=== PATIENT | female | born 1940 | race Caucasian/White ===

== ENCOUNTER 2023-05-30 16:22 | Inpatient (IN) | payer MEDICARE, MEDICAID ==
[~2023-05-30] VITALS: Ht 158.8 cm; Wt 67.0 kg
[~2023-05-30 16:22] MED LIST: AMI200T PO; APIX5TAB3 PO; ASPI-1265 PO; ATOR20TA66 PO; CARV-49 PO; CLOP75TA34 PO; HYDR-4383 PO
[2023-05-30] MEDS ORDERED: heparin 10,000 units/1 ML INJ IV PRN (16:45)
[2023-05-30] MEDS: heparin 25,000 UNIT/250ml bag 250 ML IV PRN ×2 (16:57→17:15)
[2023-05-30 17:03] LABS: BASOPHILS # (AUTO) 0.1 X10'3 (0-0.2); BASOPHILS % (AUTO) 0.8 % (0-1); EOSINOPHILS % (AUTO) 0.3 % (0-6); HEMATOCRIT 40.7 % (35.0-45.0); HEMOGLOBIN 13.4 g/dl (12.0-16.0); LYMPHOCYTES # (AUTO) 1.9 X10'3 (1.1-4.8); LYMPHOCYTES % (AUTO) 18.5 % (21-51); MEAN CORPUSCULAR HEMOGLOBIN 29.2 PG (27.0-31.0); MEAN CORPUSCULAR HGB CONC 32.9 g/dL (33.0-36.5); MEAN CORPUSCULAR VOLUME 88.7 FL (78-98); MEAN PLATELET VOLUME 9.6 FL (7.4-10.4); MONOCYTES # (AUTO) 1.3 X10'3 (0-0.9); MONOCYTES % (AUTO) 13.1 % (2-12); NEUTROPHILS # (AUTO) 6.9 X10'3 (1.8-7.7); NEUTROPHILS % (AUTO) 67.3 % (42-75); PLATELET COUNT 243 X10'3 (140-440); RED BLOOD COUNT 4.59 X10'6 (4.20-5.60); RED CELL DISTRIBUTION WIDTH 15.1 % (11.5-14.5); WHITE BLOOD COUNT 10.2 X10'3 (4.5-11.0)
[2023-05-30 17:11] LABS: ALANINE AMINOTRANSFERASE 21 U/L (12-78); ALBUMIN 3.6 G/DL (3.4-5.0); ALBUMIN/GLOBULIN RATIO 1.2 (1.1-1.5); ALKALINE PHOSPHATASE 52 IU/L (46-116); ANION GAP 9 (8-16); ASPARTATE AMINO TRANSFERASE 46 U/L (10-37); BILIRUBIN,TOTAL 0.9 MG/DL (0.1-1.0); BLOOD UREA NITROGEN 20 MG/DL (7-18); BUN/CREATININE RATIO 14.2 (10.0-20.0); CALCIUM 9.4 MG/DL (8.5-10.1); CHLORIDE 106 MMOL/L (99-107); CREATININE 1.41 MG/DL (0.40-0.90); GLUCOSE 137 MG/DL (70-104); SODIUM 140 MMOL/L (135-145); TOTAL CARBON DIOXIDE 25.2 MMOL/L (24-32); TOTAL PROTEIN 6.7 G/DL (6.4-8.2); eCRCL 25 ML/MIN; eGFR 36 ML/MIN
[2023-05-30 17:19] LABS: PRO BRAIN NATRIURETIC PEPTIDE 10392 PG/ML (0-450)
[2023-05-30] MEDS ORDERED: nitroGLYCERIN 1gm ointment UD TP ONE (17:30)
[2023-05-30] MEDS ORDERED: furosemide 10 MG/1 ML 10ml inj IV ONE (17:30)
[2023-05-30 17:38] LABS: POTASSIUM 3.4 MMOL/L (3.5-5.1)
[2023-05-30] MEDS ORDERED: potassium Cl 20 mEq SR tablet PO STA (17:42)
[2023-05-30 18:23] LABS: CREATINE KINASE 360 U/L (26-192)
[2023-05-31] MEDS ORDERED: magnesium Cl slow-release 64mg tablet PO PRN (00:35)
[2023-05-31] MEDS ORDERED: potassium Cl 40MEQ/1/2NS 520ml 520 ML IV PRN (00:35)
[2023-05-31] MEDS ORDERED: magnesium 4gm in 100ml NS 100 ML IV PRN (00:35)
[2023-05-31] MEDS ORDERED: PERFLUTREN PROTEIN-A MICROSPHR (Optison) 0.22 MG/ML 3ML VIAL IV ONE (00:35)
[2023-05-31] MEDS ORDERED: mag hydrox/Alum hydrox/simeth 30ml oral suspension PO PRN (00:35)
[2023-05-31] MEDS ORDERED: ondansetron/PF 4mg/2ml inj IV PRN (00:35)
[2023-05-31] MEDS ORDERED: magnesium 2GM in 50ml NS 50 ML IV PRN (00:35)
[2023-05-31] MEDS ORDERED: magnesium hydroxide 30ml (MOM) UD suspension PO PRN (00:35)
[2023-05-31] MEDS ORDERED: potassium Cl 20 mEq SR tablet PO PRN (00:35)
[2023-05-31] MEDS ORDERED: metoprolol tartrate 25mg tablet PO ONE (00:45)
[2023-05-31] MEDS: normal saline 1000ml 1,000 ML IV SCH (01:47)
[2023-05-31] MEDS: heparin 25,000 UNIT/250ml bag 250 ML IV PRN ×2 (02:57→22:58)
[2023-05-31] MEDS: docusate sod 100mg capsule PO SCH ×2 (08:12→19:17)
[2023-05-31] MEDS: potassium Cl 20 mEq SR tablet PO PRN ×2 (08:12→19:17)
[2023-05-31] MEDS: K and/or MAG REPLACEMENT MC SCH ×2 (08:18→19:30)
[2023-05-31] MEDS: atorvastatin 20mg tablet PO SCH (08:19)
[2023-05-31 09:00] VITALS: BP 170/59; PULSE 70; RESP 18; TEMP 98.8; O2SAT 97
[2023-05-31 09:04] LABS: BASOPHILS # (AUTO) 0.1 X10'3 (0-0.2); BASOPHILS % (AUTO) 0.9 % (0-1); EOSINOPHILS # (AUTO) 0.1 X10'3 (0-0.9); HEMATOCRIT 41.5 % (35.0-45.0); HEMOGLOBIN 13.8 g/dl (12.0-16.0); LYMPHOCYTES # (AUTO) 1.9 X10'3 (1.1-4.8); LYMPHOCYTES % (AUTO) 21.3 % (21-51); MEAN CORPUSCULAR HEMOGLOBIN 29.3 PG (27.0-31.0); MEAN CORPUSCULAR HGB CONC 33.2 g/dL (33.0-36.5); MEAN CORPUSCULAR VOLUME 88.3 FL (78-98); MEAN PLATELET VOLUME 9.5 FL (7.4-10.4); MONOCYTES # (AUTO) 1.2 X10'3 (0-0.9); MONOCYTES % (AUTO) 13.2 % (2-12); NEUTROPHILS # (AUTO) 5.7 X10'3 (1.8-7.7); NEUTROPHILS % (AUTO) 63.6 % (42-75); PLATELET COUNT 243 X10'3 (140-440); RED CELL DISTRIBUTION WIDTH 14.8 % (11.5-14.5); WHITE BLOOD COUNT 8.9 X10'3 (4.5-11.0)
[2023-05-31 09:09] LABS: ALANINE AMINOTRANSFERASE 23 U/L (12-78); ALBUMIN 3.5 G/DL (3.4-5.0); ALBUMIN/GLOBULIN RATIO 1.1 (1.1-1.5); ALKALINE PHOSPHATASE 56 IU/L (46-116); ANION GAP 8 (8-16); ASPARTATE AMINO TRANSFERASE 46 U/L (10-37); BILIRUBIN,TOTAL 1.2 MG/DL (0.1-1.0); BLOOD UREA NITROGEN 20 MG/DL (7-18); BUN/CREATININE RATIO 13.1 (10.0-20.0); CALCIUM 9.2 MG/DL (8.5-10.1); CHLORIDE 104 MMOL/L (99-107); CHOL/HDL RATIO 2.6 (0.00-4.99); CHOLESTEROL 147 MG/DL (0-200); CREATININE 1.53 MG/DL (0.40-0.90); GLUCOSE 112 MG/DL (70-104); HDL CHOLESTEROL 56 MG/DL (35-60); LDL CHOLESTEROL 70 MG/DL (50-100); MAGNESIUM 1.8 MG/DL (1.5-2.4); POTASSIUM 3.1 MMOL/L (3.5-5.1); SODIUM 142 MMOL/L (135-145); TOTAL CARBON DIOXIDE 29.9 MMOL/L (24-32); TOTAL PROTEIN 6.8 G/DL (6.4-8.2); TRIGLYCERIDES 81 MG/DL (20-135); eCRCL 23 ML/MIN; eGFR 32 ML/MIN
[2023-05-31 09:30] VITALS: RESP 18; O2SAT 97
[2023-05-31 17:15] VITALS: BP 180/100
[2023-05-31 18:00] VITALS: BP 210/100; PULSE 79; RESP 15; TEMP 97.7; O2SAT 95
[2023-05-31 18:05] VITALS: BP 160/80
[2023-05-31] MEDS: acetaminophen 325mg tablet PO PRN (19:06)
[2023-05-31] MEDS: hydrALAZINE 20mg/ml inj. IV PRN (19:06)
[2023-05-31 22:00] VITALS: BP 163/64; PULSE 81; RESP 20; TEMP 98.2; O2SAT 97
[2023-06-01] VITALS (7 sets, daily range): BP systolic 142–172; BP diastolic 54–72; PULSE 65–78; RESP 13–21; TEMP 97.2–98; O2SAT 94–97
[2023-06-01 04:27] LABS: ALANINE AMINOTRANSFERASE 18 U/L (12-78); ALKALINE PHOSPHATASE 45 IU/L (46-116); ANION GAP 7 (8-16); ASPARTATE AMINO TRANSFERASE 29 U/L (10-37); BILIRUBIN,TOTAL 1.1 MG/DL (0.1-1.0); BLOOD UREA NITROGEN 25 MG/DL (7-18); BUN/CREATININE RATIO 17.6 (10.0-20.0); CALCIUM 8.8 MG/DL (8.5-10.1); CHLORIDE 105 MMOL/L (99-107); CREATININE 1.42 MG/DL (0.40-0.90); GLUCOSE 102 MG/DL (70-104); MAGNESIUM 1.9 MG/DL (1.5-2.4); POTASSIUM 3.6 MMOL/L (3.5-5.1); SODIUM 139 MMOL/L (135-145); TOTAL CARBON DIOXIDE 26.8 MMOL/L (24-32); TOTAL PROTEIN 5.9 G/DL (6.4-8.2); eCRCL 25 ML/MIN; eGFR 35 ML/MIN
[2023-06-01 04:46] LABS: BASOPHILS # (AUTO) 0.1 X10'3 (0-0.2); BASOPHILS % (AUTO) 1.1 % (0-1); EOSINOPHILS # (AUTO) 0.3 X10'3 (0-0.9); EOSINOPHILS % (AUTO) 3.7 % (0-6); HEMOGLOBIN 12.4 g/dl (12.0-16.0); LYMPHOCYTES # (AUTO) 2.3 X10'3 (1.1-4.8); MEAN CORPUSCULAR HEMOGLOBIN 29.5 PG (27.0-31.0); MEAN CORPUSCULAR HGB CONC 33.6 g/dL (33.0-36.5); MEAN PLATELET VOLUME 9.4 FL (7.4-10.4); MONOCYTES # (AUTO) 1.2 X10'3 (0-0.9); MONOCYTES % (AUTO) 14.3 % (2-12); NEUTROPHILS # (AUTO) 4.2 X10'3 (1.8-7.7); NEUTROPHILS % (AUTO) 51.9 % (42-75); PLATELET COUNT 240 X10'3 (140-440); RED CELL DISTRIBUTION WIDTH 15.1 % (11.5-14.5); WHITE BLOOD COUNT 8.1 X10'3 (4.5-11.0)
[2023-06-01] MEDS: acetaminophen 325mg tablet PO PRN ×2 (05:31→15:14)
[2023-06-01] MEDS: K and/or MAG REPLACEMENT MC SCH ×2 (08:00→19:22)
[2023-06-01] MEDS: docusate sod 100mg capsule PO SCH ×2 (08:17→19:26)
[2023-06-01] MEDS: atorvastatin 20mg tablet PO SCH (08:18)
[2023-06-01] MEDS: hydrALAZINE 20mg/ml inj. IV PRN (08:18)
[2023-06-01] MEDS ORDERED: metoprolol tartrate 50mg tablet PO ONE (08:35)
[2023-06-01] MEDS ORDERED: amLODIPine 5mg tablet PO SCH (16:00)
[2023-06-01] MEDS: metoprolol tartrate 25mg tablet PO SCH (19:27)
[2023-06-01] MEDS: normal saline 1000ml 1,000 ML IV SCH (19:47)
[2023-06-02] VITALS (7 sets, daily range): BP systolic 106–167; BP diastolic 62–77; PULSE 72–81; RESP 16–18; TEMP 97.2–98.2; O2SAT 94–97
[2023-06-02] MEDS: hydrALAZINE 20mg/ml inj. IV PRN (02:31)
[2023-06-02 02:59] LABS: BASOPHILS # (AUTO) 0.1 X10'3 (0-0.2); BASOPHILS % (AUTO) 1.4 % (0-1); EOSINOPHILS # (AUTO) 0.5 X10'3 (0-0.9); EOSINOPHILS % (AUTO) 6.6 % (0-6); HEMATOCRIT 36.7 % (35.0-45.0); LYMPHOCYTES # (AUTO) 2.6 X10'3 (1.1-4.8); MEAN CORPUSCULAR HEMOGLOBIN 28.8 PG (27.0-31.0); MEAN CORPUSCULAR HGB CONC 32.7 g/dL (33.0-36.5); MEAN CORPUSCULAR VOLUME 88.2 FL (78-98); MEAN PLATELET VOLUME 9.4 FL (7.4-10.4); MONOCYTES # (AUTO) 1.1 X10'3 (0-0.9); MONOCYTES % (AUTO) 14.4 % (2-12); NEUTROPHILS # (AUTO) 3.4 X10'3 (1.8-7.7); NEUTROPHILS % (AUTO) 43.6 % (42-75); PLATELET COUNT 245 X10'3 (140-440); RED BLOOD COUNT 4.17 X10'6 (4.20-5.60); WHITE BLOOD COUNT 7.7 X10'3 (4.5-11.0)
[2023-06-02 03:06] LABS: ALANINE AMINOTRANSFERASE 18 U/L (12-78); ALBUMIN 2.8 G/DL (3.4-5.0); ALKALINE PHOSPHATASE 45 IU/L (46-116); ANION GAP 8 (8-16); ASPARTATE AMINO TRANSFERASE 25 U/L (10-37); BILIRUBIN,TOTAL 0.8 MG/DL (0.1-1.0); BLOOD UREA NITROGEN 32 MG/DL (7-18); BUN/CREATININE RATIO 22.7 (10.0-20.0); CALCIUM 8.8 MG/DL (8.5-10.1); CHLORIDE 105 MMOL/L (99-107); CREATININE 1.41 MG/DL (0.40-0.90); GLUCOSE 104 MG/DL (70-104); MAGNESIUM 2.2 MG/DL (1.5-2.4); POTASSIUM 3.6 MMOL/L (3.5-5.1); SODIUM 139 MMOL/L (135-145); TOTAL CARBON DIOXIDE 26.1 MMOL/L (24-32); TOTAL PROTEIN 5.5 G/DL (6.4-8.2); eCRCL 25 ML/MIN; eGFR 36 ML/MIN
[2023-06-02] MEDS: acetaminophen 325mg tablet PO PRN (03:26)
[2023-06-02] MEDS: docusate sod 100mg capsule PO SCH ×2 (07:42→19:34)
[2023-06-02] MEDS: atorvastatin 20mg tablet PO SCH (07:44)
[2023-06-02] MEDS: metoprolol tartrate 25mg tablet PO SCH ×2 (07:44→19:33)
[2023-06-02] MEDS: amLODIPine 5mg tablet PO SCH (07:45)
[2023-06-02] MEDS: K and/or MAG REPLACEMENT MC SCH ×2 (08:00→19:47)
[2023-06-02] MEDS ORDERED: clopidogrel 75mg tablet PO ONE (08:50)
[2023-06-02] MEDS ORDERED: HYDR-4069 PO (11:47)
[2023-06-02] MEDS ORDERED: aspirin/acetaminophen/caffeine tablet PO PRN (12:25)
[2023-06-02] MEDS: hydrALAZINE 25 MG tablet PO SCH (19:34)
[2023-06-03] VITALS (8 sets, daily range): BP systolic 138–184; BP diastolic 56–75; PULSE 61–88; RESP 10–20; TEMP 97.2–98.6; O2SAT 94–97
[2023-06-03] MEDS: acetaminophen 325mg tablet PO PRN ×2 (01:26→19:22)
[2023-06-03] MEDS: metoprolol tartrate 25mg tablet PO SCH ×2 (07:52→19:16)
[2023-06-03] MEDS: amLODIPine 5mg tablet PO SCH (07:52)
[2023-06-03] MEDS: hydrALAZINE 25 MG tablet PO SCH ×2 (07:53→19:15)
[2023-06-03] MEDS: clopidogrel 75mg tablet PO SCH (07:53)
[2023-06-03] MEDS: docusate sod 100mg capsule PO SCH ×2 (07:53→19:14)
[2023-06-03] MEDS: atorvastatin 20mg tablet PO SCH (07:53)
[2023-06-03] MEDS ORDERED: atorvastatin 20mg tablet PO SCH (08:00)
[2023-06-03] MEDS ORDERED: clopidogrel 75mg tablet PO SCH (08:00)
[2023-06-03] MEDS: K and/or MAG REPLACEMENT MC SCH ×2 (08:00→20:00)
[2023-06-03 08:05] LABS: BASOPHILS # (AUTO) 0.1 X10'3 (0-0.2); EOSINOPHILS # (AUTO) 0.4 X10'3 (0-0.9); HEMATOCRIT 38.8 % (35.0-45.0); HEMOGLOBIN 12.7 g/dl (12.0-16.0); LYMPHOCYTES # (AUTO) 2.4 X10'3 (1.1-4.8); LYMPHOCYTES % (AUTO) 33.1 % (21-51); MEAN CORPUSCULAR HGB CONC 32.7 g/dL (33.0-36.5); MEAN CORPUSCULAR VOLUME 88.6 FL (78-98); MEAN PLATELET VOLUME 9.4 FL (7.4-10.4); MONOCYTES % (AUTO) 13.9 % (2-12); NEUTROPHILS # (AUTO) 3.3 X10'3 (1.8-7.7); PLATELET COUNT 276 X10'3 (140-440); RED BLOOD COUNT 4.37 X10'6 (4.20-5.60); RED CELL DISTRIBUTION WIDTH 14.9 % (11.5-14.5); WHITE BLOOD COUNT 7.2 X10'3 (4.5-11.0)
[2023-06-03 08:45] LABS: ALANINE AMINOTRANSFERASE 22 U/L (12-78); ALKALINE PHOSPHATASE 52 IU/L (46-116); ANION GAP 9 (8-16); ASPARTATE AMINO TRANSFERASE 33 U/L (10-37); BILIRUBIN,TOTAL 0.9 MG/DL (0.1-1.0); BLOOD UREA NITROGEN 27 MG/DL (7-18); BUN/CREATININE RATIO 20.9 (10.0-20.0); CALCIUM 8.9 MG/DL (8.5-10.1); CHLORIDE 106 MMOL/L (99-107); CREATININE 1.29 MG/DL (0.40-0.90); GLUCOSE 88 MG/DL (70-104); MAGNESIUM 2.3 MG/DL (1.5-2.4); POTASSIUM 3.8 MMOL/L (3.5-5.1); SODIUM 141 MMOL/L (135-145); TOTAL CARBON DIOXIDE 25.9 MMOL/L (24-32); TOTAL PROTEIN 6.1 G/DL (6.4-8.2); eCRCL 27 ML/MIN; eGFR 40 ML/MIN
[2023-06-03] MEDS: hydrALAZINE 20mg/ml inj. IV PRN (16:54)
[2023-06-04 07:00] VITALS: BP 172/67; PULSE 77; RESP 17; TEMP 97.4; O2SAT 95
[2023-06-04] MEDS: clopidogrel 75mg tablet PO SCH (07:59)
[2023-06-04] MEDS: docusate sod 100mg capsule PO SCH (07:59)
[2023-06-04 08:00] VITALS: RESP 17; O2SAT 95
[2023-06-04] MEDS: metoprolol tartrate 25mg tablet PO SCH (08:00)
[2023-06-04] MEDS: K and/or MAG REPLACEMENT MC SCH (08:00)
[2023-06-04] MEDS: atorvastatin 20mg tablet PO SCH (08:00)
[2023-06-04] MEDS: amLODIPine 5mg tablet PO SCH (08:00)
[2023-06-04] MEDS: hydrALAZINE 25 MG tablet PO SCH (08:00)
[2023-06-04 08:11] LABS: BASOPHILS # (AUTO) 0.1 X10'3 (0-0.2); BASOPHILS % (AUTO) 0.9 % (0-1); EOSINOPHILS # (AUTO) 0.4 X10'3 (0-0.9); EOSINOPHILS % (AUTO) 6.3 % (0-6); HEMATOCRIT 37.9 % (35.0-45.0); HEMOGLOBIN 12.5 g/dl (12.0-16.0); LYMPHOCYTES # (AUTO) 1.9 X10'3 (1.1-4.8); LYMPHOCYTES % (AUTO) 26.6 % (21-51); MEAN CORPUSCULAR HEMOGLOBIN 29.1 PG (27.0-31.0); MEAN CORPUSCULAR HGB CONC 32.9 g/dL (33.0-36.5); MEAN CORPUSCULAR VOLUME 88.5 FL (78-98); MEAN PLATELET VOLUME 8.9 FL (7.4-10.4); MONOCYTES % (AUTO) 13.9 % (2-12); NEUTROPHILS # (AUTO) 3.7 X10'3 (1.8-7.7); NEUTROPHILS % (AUTO) 52.3 % (42-75); PLATELET COUNT 250 X10'3 (140-440); RED BLOOD COUNT 4.28 X10'6 (4.20-5.60); RED CELL DISTRIBUTION WIDTH 15.2 % (11.5-14.5); WHITE BLOOD COUNT 7.1 X10'3 (4.5-11.0)
[2023-06-04 08:52] LABS: ALANINE AMINOTRANSFERASE 20 U/L (12-78); ALBUMIN 2.9 G/DL (3.4-5.0); ALKALINE PHOSPHATASE 49 IU/L (46-116); ANION GAP 12 (8-16); ASPARTATE AMINO TRANSFERASE 31 U/L (10-37); BILIRUBIN,TOTAL 0.7 MG/DL (0.1-1.0); BLOOD UREA NITROGEN 29 MG/DL (7-18); BUN/CREATININE RATIO 21.5 (10.0-20.0); CALCIUM 8.9 MG/DL (8.5-10.1); CHLORIDE 105 MMOL/L (99-107); CREATININE 1.35 MG/DL (0.40-0.90); GLUCOSE 90 MG/DL (70-104); MAGNESIUM 2.2 MG/DL (1.5-2.4); POTASSIUM 3.8 MMOL/L (3.5-5.1); SODIUM 140 MMOL/L (135-145); TOTAL PROTEIN 5.8 G/DL (6.4-8.2); eCRCL 26 ML/MIN; eGFR 38 ML/MIN
[2023-06-04] MEDS ORDERED: LOP25T PO (10:45)
[2023-06-04] MEDS ORDERED: NOR5T PO (10:45)
[2023-06-04] MEDS ORDERED: ACET-1008 PO (10:45)
[2023-06-04 11:00] VITALS: BP 150/61; PULSE 65; RESP 12; TEMP 97.8; O2SAT 97
== END 2023-06-04 12:18 | DRG 280 ==
LOC: ER 16:23 → ED HOLD 05-31 00:35 → EDBEDREQ 05-31 05:47 → PCU 3S 05-31 08:30
PROVIDERS: ADMIT Internal Medicine; ATTEND Family Medicine
DX: I21.4 Non-ST elevation (NSTEMI) myocardial infarction (principal); N17.0 Acute kidney failure with tubular necrosis; I16.1 Hypertensive emergency; E78.00 Pure hypercholesterolemia, unspecified; I25.10 Atherosclerotic heart disease of native coronary artery without angina pectoris; I48.91 Unspecified atrial fibrillation; I50.9 Heart failure, unspecified; J43.9 Emphysema, unspecified; E87.6 Hypokalemia; J45.909 Unspecified asthma, uncomplicated; Z82.49 Family history of ischemic heart disease and other diseases of the circulatory system; I25.2 Old myocardial infarction; Z88.0 Allergy status to penicillin; Z88.5 Allergy status to narcotic agent; Z79.899 Other long term (current) drug therapy; Z79.82 Long term (current) use of aspirin
CPT/HCPCS: 36415; 71045; 72131; 80053; 80061; 82550; 83735; 83880; 84484; 85025; 85730; 87081; 93306; 97110; 97161; 97530; 99285; G0378; J0360; J1644; J1940; J7030; J7040

== ENCOUNTER 2024-10-05 10:53 | Day surgery (SDC) | payer MEDICARE, MEDICAID ==
[~2024-10-05] VITALS: Ht 157.5 cm; Wt 60.6 kg
[~2024-10-05 10:53] MED LIST changes: +ACET-1008 PO; -AMI200T PO; -ASPI-1265 PO; -CARV-49 PO; -HYDR-4383 PO; +HYDR25TA90 PO; +LOP25T PO; +NOR5T PO
[2024-10-05 11:54] LABS: HEMOGLOBIN 10.3 g/dl (12.0-16.0); MEAN CORPUSCULAR HEMOGLOBIN 29.4 PG (27.0-31.0); MEAN CORPUSCULAR HGB CONC 32.2 g/dL (33.0-36.5); MEAN CORPUSCULAR VOLUME 91.3 FL (78-98); MEAN PLATELET VOLUME 9.1 FL (7.4-10.4); PLATELET COUNT 244 X10'3 (140-440); RED BLOOD COUNT 3.51 X10'6 (4.20-5.60); RED CELL DISTRIBUTION WIDTH 16.5 % (11.5-14.5); WHITE BLOOD COUNT 5.2 X10'3 (4.5-11.0)
[2024-10-05] MEDS ORDERED: RIVA20TA PO (11:55)
[2024-10-05] MEDS ORDERED: AMLO5TAB16 PO (11:55)
[2024-10-05] MEDS ORDERED: EZET10TA48 PO (11:56)
[2024-10-05] MEDS ORDERED: FERR-106 PO (11:56)
[2024-10-05] MEDS ORDERED: ROSU40TA89 PO (11:56)
[2024-10-05] MEDS ORDERED: METO25TA6 PO (11:56)
[2024-10-05] MEDS ORDERED: heparin 1,000unit/ml 10ml vial 0 ML ONE (12:30)
[2024-10-05] MEDS ORDERED: atropine 0.1mg/ml 10ml syringe ONE (12:30)
[2024-10-05] MEDS ORDERED: phenylephrine 10mg/ml inj. ONE (12:30)
[2024-10-05] MEDS ORDERED: iohexol 350MG/ML 100ml bottle IV ONE (12:30)
[2024-10-05] MEDS ORDERED: LIDOcaine 1% 30ml preserv. free vial ONE (12:30)
[2024-10-05] MEDS ORDERED: heparin 1,000 UNITS/NS 500ml 0 ML ONE (12:31)
[2024-10-05] MEDS ORDERED: DOPamine 400mg/D5W 250ml 250 ML IV ONE (12:31)
[2024-10-05 12:35] VITALS: BP 132/71; PULSE 55; RESP 16; TEMP 97.9; O2SAT 97
[2024-10-05 12:45] VITALS: RESP 16; O2SAT 97
[2024-10-05 13:00] LABS: INR 1.1 INR; PROTHROMBIN TIME 11.5 SECONDS (9.0-12.0)
[2024-10-05] MEDS: normal saline 1,000 ML IV SCH (13:04)
[2024-10-05] MEDS: LORazepam 0.5 MG tablet PO PRN (13:04)
[2024-10-05] MEDS: diphenhydrAMINE 25mg capsule PO PRN (13:05)
== END 2024-10-05 14:40 | disposition home or self-care (01) ==
LOC: SSTAY O 10:53
PROVIDERS: ATTEND Student in an Organized Health Care Education/Training Program
DX: I65.23 Occlusion and stenosis of bilateral carotid arteries (principal); Z53.8 Procedure and treatment not carried out for other reasons; I25.10 Atherosclerotic heart disease of native coronary artery without angina pectoris; I25.2 Old myocardial infarction; I48.0 Paroxysmal atrial fibrillation; I12.9 Hypertensive chronic kidney disease with stage 1 through stage 4 chronic kidney disease, or unspecified chronic kidney disease; N18.9 Chronic kidney disease, unspecified; I48.92 Unspecified atrial flutter; Z88.0 Allergy status to penicillin; Z88.6 Allergy status to analgesic agent; Z88.8 Allergy status to other drugs, medicaments and biological substances; I44.7 Left bundle-branch block, unspecified; Z79.01 Long term (current) use of anticoagulants; Z79.899 Other long term (current) drug therapy; Z98.890 Other specified postprocedural states; Z86.2 Personal history of diseases of the blood and blood-forming organs and certain disorders involving the immune mechanism
CPT/HCPCS: 36415; 85027; 85610; 93005; J0461; J1265; J1644; J2003; J2371; J7030; Q0163; Q9967; Z7610

== ENCOUNTER 2024-11-01 14:40 | Inpatient (IN) | payer MEDICARE, MEDICAID ==
[~2024-11-01] VITALS: Ht 157.5 cm; Wt 54.5 kg
[~2024-11-01 14:40] MED LIST changes: -ACET-1008 PO; +AMLO5TAB16 PO; -APIX5TAB3 PO; -ATOR20TA66 PO; +EZET10TA48 PO; +FERR-106 PO; -HYDR25TA90 PO; -LOP25T PO; +METO25TA6 PO; -NOR5T PO; +RIVA15TA PO; +ROSU40TA89 PO
[2024-11-01 15:42] LABS: BASOPHILS % (AUTO) 0.2 % (0-1); EOSINOPHILS % (AUTO) 0 % (0-6); HEMATOCRIT 22.8 % (35.0-45.0); HEMOGLOBIN 7.5 g/dl (12.0-16.0); LYMPHOCYTES # (AUTO) 0.8 X10'3 (1.1-4.8); LYMPHOCYTES % (AUTO) 4.3 % (21-51); MEAN CORPUSCULAR HEMOGLOBIN 30.1 PG (27.0-31.0); MEAN CORPUSCULAR HGB CONC 32.7 g/dL (33.0-36.5); MONOCYTES # (AUTO) 1.4 X10'3 (0-0.9); MONOCYTES % (AUTO) 7.6 % (2-12); NEUTROPHILS % (AUTO) 87.9 % (42-75); PLATELET COUNT 216 X10'3 (140-440); RED BLOOD COUNT 2.48 X10'6 (4.20-5.60); RED CELL DISTRIBUTION WIDTH 15.8 % (11.5-14.5); WHITE BLOOD COUNT 18.2 X10'3 (4.5-11.0)
--- NOTE | 2024-11-01 15:43 | ELECTROCARDIOGRAPH REPORT ---
[facility] Test Date: 2024-11-01 Test Time: 15:39:44 Pat Name: GENEVIEVE LONG Department: [facility] Patient ID: [facility]-[id number] Room: ED 12 Gender: F Cue Selector: : 1940 Requested By: MARLON JACOME Order Number: [id number] Reading MD: Dr. Jose Millan Measurements Intervals [place] Rate: 76 P: 41 [place]: 0 QRS: -15 QRSD: 170 T: 152 QT: 446 QTc: 502 Interpretive Statements Complete AV block with wide QRS complex Left bundle branch block Baseline wander in lead(s) V6 Electronically Signed On 11-01-2024 18:29:[address] Jose Millan Please click the below link to view image of tracing.
[2024-11-01 15:54] LABS: ALANINE AMINOTRANSFERASE 302 U/L (12-78); ALBUMIN 2.5 G/DL (3.4-5.0); ALBUMIN/GLOBULIN RATIO 1.1 (1.1-1.5); ALKALINE PHOSPHATASE 109 IU/L (46-116); ANION GAP 12 (8-16); ASPARTATE AMINO TRANSFERASE 390 U/L (10-37); BILIRUBIN,TOTAL 0.8 MG/DL (0.1-1.0); BLOOD UREA NITROGEN 48 MG/DL (7-18); BUN/CREATININE RATIO 16.3 (10.0-20.0); CALCIUM 8.3 MG/DL (8.5-10.1); CHLORIDE 111 MMOL/L (99-107); CREATININE 2.95 MG/DL (0.40-0.90); GLUCOSE 165 MG/DL (70-104); POTASSIUM 3.2 MMOL/L (3.5-5.1); SODIUM 145 MMOL/L (135-145); TOTAL CARBON DIOXIDE 22.5 MMOL/L (24-32); TOTAL PROTEIN 4.8 G/DL (6.4-8.2); eCRCL 11 ML/MIN; eGFR 15 ML/MIN
--- NOTE | 2024-11-01 15:56 | RADIOLOGY REPORT ---
CHEST RADIOGRAPH Indication: CP Technique: Single frontal view of the chest was obtained COMPARISON: DI CHEST,SINGLE VIEW on DOS: 05/30/23 FINDINGS: Lines and Tubes: None Lungs: Clear Pleura: No effusion. No pneumothorax. Cardiomediastinal contours: Unremarkable Bones: Unremarkable IMPRESSION: No acute disease.
[2024-11-01 16:01] LABS: PRO BRAIN NATRIURETIC PEPTIDE 3496 PG/ML (0-450)
[2024-11-01] MEDS ORDERED: pantoprazole 40MG/NS 100ML BAG 100 ML IV ONE (16:25)
--- NOTE | 2024-11-01 16:47 | Physician Documentation ---
History of Present Illness ~ Chief Complaint: Mechanical Fall Stated Complaint: TRANSFER Time Seen by MD: 14:58 Primary Medical Doctor: Dr. Pepper/Dr. Vega Mode of Arrival: EMS, Stretcher HPI 84-year-old pleasant female patient was transferred from [facility] in [place] by ambulance because of melanotic stool. The patient fell today because she has no energy. She has been on Xarelto and Plavix and she took this morning before the accident. No trauma from the accident. She later told that she has been noticing black stool for 10 days. And her energy is running down. At the [facility] emergency room the patient was given Kcentra and 1 unit of blood transfused and Protonix 80 mg was given IV push and then she became hemodynamically stable and transferred to the [facility] emergency room. Transfer was uneventful. Tetanus within 5 Years?: No Medication Reconciliation Allergies: Coded Allergies: HI Inhibitors (Verified Allergy, Unknown, 10/19/24) Penicillins (Unverified Allergy, Unknown, 01/16/16) clarithromycin (Verified Allergy, Unknown, 10/19/24) codeine (Verified Allergy, Unknown, NAUSEA, 01/16/16) levofloxacin (Unverified Allergy, Unknown, 01/16/16) tramadol (Verified Allergy, Unknown, 10/19/24) Uncoded Allergies: MOST ABX (Allergy, Unknown, 01/16/16) Scheduled Amlodipine Besylate (Amlodipine Besylate), 1 TAB PO DAILY, (Reported) Clopidogrel Bisulfate (Clopidogrel), 1 TAB PO DAILY, (Reported) Ezetimibe (Ezetimibe), 1 TAB PO DAILY, (Reported) Ferrous Sulfate (Ferrous Sulfate), 1 TAB PO DAILY, (Reported) Metoprolol Tartrate (Metoprolol Tartrate), 1 TAB PO BID, (Reported) Rivaroxaban (Xarelto), 1 TAB PO DAILY Rosuvastatin Calcium (Rosuvastatin Calcium), 1 TAB PO DAILY, (Reported) Past Medical History Past Medical History: High Cholesterol, Hypertension, Myocardial Infarction, Asthma, Emphysema Past Surgical History: Patient History: (CAD) Coronary arteriosclerosis FATHER, , Age: 79, Cause: of unknown cause, Onset:60 years & older MOTHER, , Age: 85, Cause: of unknown cause, Onset:60 years & older (CHF) Congestive heart failure FATHER, , Age: 79, Cause: of unknown cause, Onset:Unknown MOTHER, , Age: 85, Cause: of unknown cause, Onset:Unknown Smoking Status: Never smoker Lives In: Home Review of Systems ROS As stated above in the HPI, otherwise all systems are reviewed and negative. Physical Exam Vital Signs: Temperature: 98.0, Heart Rate: 77, Respiratory Rate: 18, BP: 138/56, Pulse Oximetry: 99, Weight: 54.550 Oxygen Flow Rate: 0 Physical Exam Vital signs reviewed and they are well within normal range. Const: Pleasant elderly female patient not in acute distress the, she does look pale Head: Atraumatic Eyes: Normal Conjunctiva ENT: Normal External Ears, Nose and Mouth. Moist mucous membranes Neck: Full range of motion. No meningismus Resp: Clear to auscultation bilaterally. Normal work of breathing Cardio: Regular rate and rhythm, no murmurs. Skin well perfused Abd: Soft, non-tender, non-distended. Normal bowel sounds. No rebound or guarding Skin: No petechiae or rashes. Warm and dry Back: No midline or flank tenderness Ext: No cyanosis, or edema Neuro: Awake and alert Psych: Normal Mood and Affect Progress Results/Orders Results/Orders Orders - MARLON JACOME MD Chest,Single View (11/01/24 15:15) Monitor (11/01/24 15:15) Saline Lock (11/01/24 15:15) Oxygen (11/01/24 15:15) Hs Troponin I W Calculations (11/01/24 17:15) Hs Troponin I W Calculations (11/01/24 18:15) Pantoprazole 40mg/Ns 100ml Bag (Protonix (11/01/24 16:25) Page Hospitalist (11/01/24 16:50) Completed Orders - MARLON JACOME MD Chest,Single View (11/01/24 15:15) Cbc/Diff (11/01/24 15:15) PBNP (11/01/24 15:15) Electrocardiogram (11/01/24 15:15) CMP (11/01/24 15:15) Hs Troponin I W Calculations (11/01/24 15:15) Vital Signs 11/01/24 11/01/24 11/01/24 14:50 15:39 15:48 Temp 98.0 98.0 Pulse 74 77 Resp 18 16 18 B/P (MAP) 157/62 138/56 (83) Pulse Ox 99 99 O2 Flow Rate 0 Laboratory Tests Test 11/01/24 15:28 White Blood Count 18.2 H Red Blood Count 2.48 L Hemoglobin 7.5 L Hematocrit 22.8 L Mean Corpuscular Volume 92.0 Mean Corpuscular Hemoglobin 30.1 Mean Corpuscular Hemoglobin Concent 32.7 L Red Cell Distribution Width 15.8 H Platelet Count 216 Mean Platelet Volume 9.0 Neutrophils (%) (Auto) 87.9 H Lymphocytes (%) (Auto) 4.3 L Monocytes (%) (Auto) 7.6 Eosinophils (%) (Auto) 0 Basophils (%) (Auto) 0.2 Neutrophils # (Auto) 16.0 H Lymphocytes # (Auto) 0.8 L Monocytes # (Auto) 1.4 H Eosinophils # (Auto) 0.0 Basophils # (Auto) 0.0 CBC Comment Sodium Level 145 Potassium Level 3.2 L Chloride Level 111 H Carbon Dioxide Level 22.5 L Anion Gap 12 Blood Urea Nitrogen 48 H Creatinine 2.95 H Estimated GFR/1.73 m2 15 BUN/Creatinine Ratio 16.3 Glucose Level 165 H Calcium Level 8.3 L Total Bilirubin 0.8 Aspartate Amino Transf (AST/SGOT) 390 H Alanine Aminotransferase (ALT/SGPT) 302 H Alkaline Phosphatase 109 Troponin I High Sensitivity 107 *H Pro-B-Type Natriuretic Peptide 3496 H Total Protein 4.8 L Albumin 2.5 L Globulin 2.3 L Albumin/Globulin Ratio 1.1 Chemistry Comments Medical Decision Making Findings During the physical examination, the findings suggestive of acute life- threatening condition such as JVD, tracheal deviation, acidotic breathing, noisy stridorous breath sounds, pulses paradoxus, muffled heart sounds, unequal breath sounds, abdominal rigidity and rebound tenderness, focal neurological deficits, cool clammy skin, severe hypotension, severe tachycardia or bradycardia are absent. The patient is comfortable and hemodynamically stable. Her CBC showed WBC 18.2 H and H7.5 and 22.8 and platelets 216. Sodium 145 potassium 3.2 chloride 111 bicarb 22.5 BUN 48 creatinine 2.95 and glucose 165. Troponin is 107 and BNP is 3496. Patient's EKG done at 15:41 hours shows sinus rhythm at a rate of 75 with left bundle branch block. No ischemic changes. In the emergency room we continue the Protonix drip. I have spoken to Dr. Serra, GI specialist for GI consultation for probable upper endoscopy. Patient will be admitted to the hospital for further evaluation and treatment. Departure Disposition: ADMITTED INPATIENT Impression: Primary Impression: Upper GI bleed Additional Impressions: Melena Profound anemia Referrals: NO PRIMARY CARE PROVIDER (PCP) Signature Scribe Signature: x Attestation: MARLON Hodge MD November 01, 2024 16:47
[2024-11-01] MEDS ORDERED: magnesium Cl slow-release 64mg tablet PO PRN (17:10)
[2024-11-01] MEDS ORDERED: mag hydrox/Alum hydrox/simeth 30ml oral suspension PO PRN (17:10)
[2024-11-01] MEDS ORDERED: magnesium sulf-water 2g/50mL 50 ML IV PRN (17:10)
[2024-11-01] MEDS ORDERED: potassium Cl 20 mEq SR tablet PO PRN (17:10)
[2024-11-01] MEDS ORDERED: acetaminophen 325mg tablet PO PRN (17:10)
[2024-11-01] MEDS ORDERED: magnesium hydroxide 30ml (MOM) UD suspension PO PRN (17:10)
[2024-11-01] MEDS ORDERED: magnesium sulf-water 4G/100mL 100 ML IV PRN (17:10)
[2024-11-01] MEDS ORDERED: potassium Cl 40MEQ/1/2NS 520ml 520 ML IV PRN (17:10)
[2024-11-01] MEDS ORDERED: ondansetron/PF 4mg/2ml inj IV PRN (17:10)
[2024-11-01 17:47] LABS: HEMOGLOBIN A1C 4.8 % (4.5-6.2)
[2024-11-01] MEDS: CefTRIAXone/D5W-Rocephin 1gm 50 ML IV SCH (17:47)
[2024-11-01] MEDS: normal saline 1000ml 1,000 ML IV SCH (17:48)
[2024-11-01] MEDS: pantoprazole 40MG/NS 100ML BAG 100 ML IV ONE (17:48)
--- NOTE | 2024-11-01 17:58 | HISTORY AND PHYSICAL-Residence ---
History & Physical Providers to Resident Creating Document: LV WILD, RES ~ History of Present Illness Primary Medical Doctor: Dr. Pepper/Dr. Vega Reason for Admit\Complaint: Fatigue History of Present Illness Patient was extremely weak and could not provide complete history As per records from [facility]: 84-year-old female who was brought for weakness and ground level fall. Three weeks ago she had a carotid stent placed and was on his Xarelto and clopidogrel. Patient was a very poor historian but her fall was without any head strike nor loss of consciousness. She claims that she was weak, dizzy and was assisted to her toilet at home and was noted to have black tarry stools. The patient was admitted that she has been having black tarry stool for several days. She denied having fever chest pain, nausea or vomiting. She complains of mild abdominal pain. From her records she has a history of anemia requiring transfusions, CKD, CAD with stents. ED course at [facility]: Patient was received a unit of blood at [facility] and she had an hemoglobin of 6.5 on arrival, her hemoglobin at [facility] was 7.5 and she had nonspecific leukocytosis and markedly depressed bicarb level of 9, elevated anion gap and restarting blood sugars. She was elevated BUN and creatinine and no hyperkalemia. She had elevated transaminases. Her anion gap at [facility] he was normal, mildly decreased bicarb Lives at home with caregiver Does not remember the name of her primary care provider Cardiology: Dr. Bowman Walks using a walker Allergies: Coded Allergies: HI Inhibitors (Verified Allergy, Unknown, 10/19/24) Penicillins (Unverified Allergy, Unknown, DOES NOT REMEMBER, 11/01/24) RN ASKED FURTHER- NO SOB clarithromycin (Verified Allergy, Unknown, 10/19/24) codeine (Verified Allergy, Unknown, NAUSEA, 01/16/16) levofloxacin (Unverified Allergy, Unknown, 01/16/16) tramadol (Verified Allergy, Unknown, 10/19/24) Uncoded Allergies: MOST ABX (Allergy, Unknown, 01/16/16) Home Medications Home Medications Active Xarelto (Rivaroxaban) 15 Mg Tab 1 Tab PO DAILY 30 Days Reported Clopidogrel (Clopidogrel Bisulfate) 75 Mg Tablet 1 Tab PO DAILY Metoprolol Tartrate 25 Mg Tablet 1 Tab PO BID Ferrous Sulfate 325 Mg (65 Mg Iron) Tablet 1 Tab PO DAILY Rosuvastatin Calcium 40 Mg Tablet 1 Tab PO DAILY Ezetimibe 10 Mg Tablet 1 Tab PO DAILY Amlodipine Besylate 5 Mg Tablet 1 Tab PO DAILY Past Medical History Past Medical History Coronary artery disease Hypertension PCI status post stenting to ramus few years of Status post Right internal and common carotid artery Paroxysmal AFib Past Surgical History Surgical History Comment Cholecystectomy Patient does not recall if she had any other surgery Family History Family History: (CAD) Coronary arteriosclerosis FATHER, , Age: 79, Cause: of unknown cause, Onset:60 years & older MOTHER, , Age: 85, Cause: of unknown cause, Onset:60 years & older (CHF) Congestive heart failure FATHER, , Age: 79, Cause: of unknown cause, Onset:Unknown MOTHER, , Age: 85, Cause: of unknown cause, Onset:Unknown Past Social History Social History Comment Denied smoking alcohol or illicit drug abuse Lives In: Home ROS ROS Reviewed in full. All negative except for pertinent positive HPI. Exam Vitals: Vital Signs Date Time Temp Pulse Resp B/P (MAP) Pulse Ox O2 Delivery O2 Flow Rate FiO2 11/01/24 15:48 98.0 77 18 138/56 (83) 99 0 General: Very frail, weak, in apparent distress HEENT: Atraumatic, normocephalic, EOMI, anicteric sclera ; pink conjunctiva Neck: Trachea midline. Supple, full range of motion, no JVD Cardiac: Regular rhythm, regular rate, no murmurs Respiratory: Equal breath sounds bilaterally, no crackles Gastrointestinal: Abdomen symmetric, non-distended, soft, non-tender, normal bowel sounds x4 quadrant, normoactive, no hepatosplenomegaly Musculoskeletal: No pedal edema, no cyanosis Neurological: Oriented, extremely weak. No motor or sensory deficit, deep tendon reflexes normal, cerebellar intact. Cranial nerves II-XII intact. Skin: Senile purpura noted Diagnostic Data Last Recorded Lab Results: 11/01/24 1528 11/01/24 1528 Advance Care Planning Advanced Care plannin - 30 Minutes Additional Plan Upper GI bleed secondary to anticoagulant use Microcytic hypochromic anemia BUN 48 Patient is on Xarelto and Plavix at home, held them for now GI, Dr. Platt was consulted and recommended EGD tomorrow Hemoglobin on admission: 7.5 Patient received 1 unit of PRBC at [facility] Hemoglobin every q.4 hours ordered Patient received loading dose IV Protonix 80 mg once at [facility] Followed by IV Protonix 8 milligrams/hour for 48 hours Consider Blood transfusion if hemoglobin trends down to less than 7 NPO from a.m. Plavix to be started tomorrow immediately after EGD, high-risk of stent occlusion Selective Right common and nonselective Right internal and external carotid artery angiography 10/20/2024 Angioplasty/stenting of the Right internal and common carotid artery using embolic protection Patient was discharged on Plavix and Xarelto Hold off both medications until cardiology consult in a.m. tomorrow Pending med reconciliation Paroxysmal AFib Armando Vasc score 3 Patient is on Xarelto at home, held anticoagulation for now Heart rate controlled EKG in ED: Showed sinus rhythm with LBBB Possible sepsis, unknown source Nonspecific transaminitis Mild abdominal pain noted Blood cultures, urinalysis with cultures ordered WBC count 18 point, no other signs of sepsis No fevers, does not complain of cough or other symptoms Chest Xray: Normal Empirically started her on Rocephin 1gm IV daily Procalcitonin 5.44, lactic acid normal CT abdomen ordered, follow up Coronary artery disease Status post stent placement to [facility] few years ago Elevated proBNP Patient does not recall if she has a history of heart failure Echocardiogram showed, follow up Echocardiogram in 2022: Normal Patient appeared dry, initiated IV fluids at 100 cc/hour DC fluids based on her volume status tomorrow CKD, stage 4 Creatinine: 2.95, baseline 2.4 Urine lytes ordered, initiated NS at 100 cc/hour Hypertension: Continue home medication amlodipine 10 mg daily and metoprolol 25 mg p.o. b.i.d. after med rec Hyperlipidemia: Ordered lipid panel, continue ezetimibe and rosuvastatin after med rec Patient does not recall her medications list, tried calling her caregiver Requested nurse to contact caregiver further information Contact number on record, Rupal mcgee, Code Status: Full code DVT Prophylaxis: SCDs Analgesia/ Sedation: Avoid NSAIDs Line/tubes: PIV Nutrition: PT: Ordered Prognosis: Guarded Disposition: Continue telemetry monitoring, EGD tomorrow Lv Wild MD Internal Medicine Resident, PGY-1 Date of Service: November 01, 2024 Billing Provider: JOSE A ECHOLS MD, GAURAV, RES November 01, 2024 17:58
[2024-11-01 18:08] LABS: ALANINE AMINOTRANSFERASE 294 U/L (12-78); ALBUMIN 2.5 G/DL (3.4-5.0); ALBUMIN/GLOBULIN RATIO 1.1 (1.1-1.5); ALKALINE PHOSPHATASE 106 IU/L (46-116); ANION GAP 12 (8-16); ASPARTATE AMINO TRANSFERASE 366 U/L (10-37); BILIRUBIN,TOTAL 0.8 MG/DL (0.1-1.0); BLOOD UREA NITROGEN 49 MG/DL (7-18); CALCIUM 8.2 MG/DL (8.5-10.1); CHLORIDE 110 MMOL/L (99-107); CREATININE 3.06 MG/DL (0.40-0.90); GLUCOSE 148 MG/DL (70-104); POTASSIUM 3.3 MMOL/L (3.5-5.1); SODIUM 145 MMOL/L (135-145); TOTAL PROTEIN 4.7 G/DL (6.4-8.2); eCRCL 11 ML/MIN; eGFR 15 ML/MIN
[2024-11-01 18:21] LABS: HEMATOCRIT 22.2 % (35.0-45.0); HEMOGLOBIN 7.3 g/dl (12.0-16.0); PLATELET COUNT 224 X10'3 (140-440); RED BLOOD COUNT 2.44 X10'6 (4.20-5.60); RED CELL DISTRIBUTION WIDTH 15.8 % (11.5-14.5); WHITE BLOOD COUNT 17.5 X10'3 (4.5-11.0)
[2024-11-01] MEDS ORDERED: HYDR-3968 PO (19:12)
[2024-11-01] MEDS ORDERED: ASPI-611 PO (19:12)
[2024-11-01] MEDS ORDERED: LANS15CA18 PO (19:12)
[2024-11-01] MEDS ORDERED: DRON400T6 PO (19:12)
[2024-11-01] MEDS ORDERED: FURO-149 PO (19:12)
--- NOTE | 2024-11-01 19:30 | RADIOLOGY REPORT ---
Clinical History Abdominal pain Comparison None Technique: All CT scans at this medical facility are performed using dose modulation techniques as appropriate t o a performed exam including the following: Automated exposure control was utilized; adjustment of th e mA and/or kV according to patient size; and use of iterative reconstruction technique. All CT studies are reported to the Dose Index Registry of the [employer]. Without Contrast Radiation Dose: CTDI (mGy): 17.13; DLP (mGy-cm): 461.34 GENEVIEVE LONG, [id number] CT ABDOMEN WITHOUT CONTRAST NUMBER OF AXIAL SOFT TISSUE IMAGES SUBMITTED FOR REPORTIN FINDINGS: Lower chest: Minimal bilateral atelectasis Liver: Unremarkable Gallbladder: Unremarkable Pancreas: Diffuse pancreatic atrophy Spleen: Unremarkable Adrenals:Unremarkable Kidneys: Bilateral renal cysts. Left renal cortical scarring. Stomach:Unremarkable Bowel: The imaged parts of the bowel is unremarkable Urinary bladder: Not included in the [id number] Reproductive organs: Not included in the [id number] Peritoneum, retroperitoneum, lymphadenopathy:Unremarkable Vascular structures: Atherosclerotic calcification of thoracic aorta measuring 2.7 x 2.4 cm in maximu m dimension. Abdominal wall:Unremarkable Musculoskeletal:No acute osseous abnormality. Degenerative changes of the imaged skeleton IMPRESSION: Diffuse pancreatic fatty infiltration and atrophy No evidence of acute intra-abdominal abnormality This report was electronically signed by Naima Jones MD on 11/01/2024 7:26:46 PM.
[2024-11-01] MEDS: K and/or MAG REPLACEMENT MC SCH (20:00)
[2024-11-01] MEDS: docusate sod 100mg capsule PO SCH (20:00)
[2024-11-01] MEDS: potassium Cl 20 mEq SR tablet PO PRN (20:03)
[2024-11-01] MEDS ORDERED: pantoprazole 40MG/NS 100ML BAG 100 ML IV SCH ×2 (21:00→21:08)
[2024-11-01 21:40] VITALS: BP 147/57; PULSE 79; RESP 29; TEMP 97.4; O2SAT 100
[2024-11-01 21:50] VITALS: RESP 29; O2SAT 100
[2024-11-01 22:00] VITALS: BP 136/62; PULSE 70; RESP 18; TEMP 100; O2SAT 98
[2024-11-02] VITALS (13 sets, daily range): BP systolic 93–153; BP diastolic 36–69; PULSE 56–82; RESP 13–22; TEMP 97.3–98.3; O2SAT 94–100
[2024-11-02] MEDS: pantoprazole 40MG/NS 100ML BAG 100 ML IV SCH (00:32)
--- NOTE | 2024-11-02 07:15 | ELECTROCARDIOGRAPH REPORT ---
[facility] Test Date: 2024-11-01 Test Time: 15:41:02 Pat Name: GENEVIEVE LONG Department: [facility] Patient ID: [facility]-[id number] Room: [place] [address] A Gender: F Sports Physician: : 1940 Requested By: DEPARTMENT EMERGENCY Order Number: [id number] Reading MD: Dr. Jose Millan Measurements Intervals [place] Rate: 75 P: 40 [place]: 188 QRS: -15 QRSD: 172 T: 143 QT: 441 QTc: 493 Interpretive Statements Sinus rhythm Left bundle branch block Electronically Signed On 11-04-2024 15:44:[address] Jose Millan Please click the below link to view image of tracing.
[2024-11-02 07:59] LABS: BASOPHILS # (AUTO) 0.1 X10'3 (0-0.2); BASOPHILS % (AUTO) 0.3 % (0-1); EOSINOPHILS % (AUTO) 0.2 % (0-6); HEMATOCRIT 23.1 % (35.0-45.0); HEMOGLOBIN 7.5 g/dl (12.0-16.0); LYMPHOCYTES # (AUTO) 1.1 X10'3 (1.1-4.8); LYMPHOCYTES % (AUTO) 7.3 % (21-51); MEAN CORPUSCULAR HEMOGLOBIN 30.1 PG (27.0-31.0); MEAN CORPUSCULAR HGB CONC 32.4 g/dL (33.0-36.5); MEAN CORPUSCULAR VOLUME 92.6 FL (78-98); MONOCYTES # (AUTO) 1.3 X10'3 (0-0.9); MONOCYTES % (AUTO) 8.7 % (2-12); NEUTROPHILS # (AUTO) 12.6 X10'3 (1.8-7.7); NEUTROPHILS % (AUTO) 83.5 % (42-75); PLATELET COUNT 222 X10'3 (140-440); RED BLOOD COUNT 2.49 X10'6 (4.20-5.60); RED CELL DISTRIBUTION WIDTH 17.2 % (11.5-14.5); WHITE BLOOD COUNT 15.1 X10'3 (4.5-11.0)
[2024-11-02] MEDS: PERFLUTREN PROTEIN-A MICROSPHR (Optison) 0.22 MG/ML 3ML VIAL IV ONE (08:05)
[2024-11-02 08:12] LABS: ALANINE AMINOTRANSFERASE 247 U/L (12-78); ALBUMIN 2.3 G/DL (3.4-5.0); ALBUMIN/GLOBULIN RATIO 0.9 (1.1-1.5); ALKALINE PHOSPHATASE 101 IU/L (46-116); ANION GAP 11 (8-16); ASPARTATE AMINO TRANSFERASE 275 U/L (10-37); BILIRUBIN,TOTAL 0.6 MG/DL (0.1-1.0); BLOOD UREA NITROGEN 53 MG/DL (7-18); BUN/CREATININE RATIO 15.1 (10.0-20.0); CALCIUM 8.1 MG/DL (8.5-10.1); CHLORIDE 113 MMOL/L (99-107); CHOL/HDL RATIO 2.4 (0.00-4.99); CHOLESTEROL 56 MG/DL (0-200); CREATININE 3.52 MG/DL (0.40-0.90); GLUCOSE 107 MG/DL (70-104); HDL CHOLESTEROL 23 MG/DL (35-60); LDL CHOLESTEROL 23 MG/DL (50-100); MAGNESIUM 2.3 MG/DL (1.5-2.4); POTASSIUM 3.4 MMOL/L (3.5-5.1); SODIUM 146 MMOL/L (135-145); TOTAL CARBON DIOXIDE 21.8 MMOL/L (24-32); TOTAL PROTEIN 4.8 G/DL (6.4-8.2); TRIGLYCERIDES 90 MG/DL (20-135); eCRCL 10 ML/MIN; eGFR 12 ML/MIN
[2024-11-02 08:47] LABS: LIPASE 27 U/L (16-77)
[2024-11-02 09:14] LABS: BILIRUBIN,URINE NEGATIVE (Neg); CLARITY,URINE SLIGHTLY CLOUDY (Clear); COLOR,URINE YELLOW (Yellow); GLUCOSE, URINE NEGATIVE (Neg); KETONES,URINE TRACE mg/dl (Neg); LEUKOCYTE ESTERASE ,URINE NEGATIVE (Neg); NITRITES, URINE NEGATIVE (Neg); OCCULT BLOOD,URINE LARGE (Neg); PROTEIN,URINE 100 mg/dl (Neg); UROBILINOGEN,URINE 0.2 E.U/dL (0.2-1.0)
[2024-11-02 09:23] LABS: UA COLLECTION TYPE NON-SPECIFIED
[2024-11-02 09:25] LABS: BACTERIA,URINE FEW /HPF (Neg); SQUAMOUS EPITHELIAL CELL,UR FEW /LPF (FEW); TRANSITIONAL EPI CELLS,URINE FEW /HPF
[2024-11-02 09:26] LABS: AMORPHOUS URATES 1+
[2024-11-02] MEDS ORDERED: LIDOcaine 2% Viscous 15ml cup ONE (11:01)
[2024-11-02] MEDS ORDERED: fentaNYL/PF 50MCG/1 ML 2ML syringe ONE (11:03)
[2024-11-02] MEDS ORDERED: MIDAZolam 1 MG/ML 5ML VIAL ONE (11:03)
[2024-11-02] MEDS ORDERED: simethicone 40mg/0.6ml oral drops 30ml ONE (11:07)
--- NOTE | 2024-11-02 12:06 | PROGRESS NOTE- Residence ---
Progress Note - Resident Providers to CC Resident Creating Document: CR NORMAN RES CC: JOSE A ECHOLS MD ~ Antibiotic Timeout Antibiotic Ordered?: Yes Subjective Patient was examined at bedside. No acute overnight events, no subjective complaints. Objective Vital Signs Date Time Temp Pulse Resp B/P (MAP) Pulse Ox O2 Delivery O2 Flow Rate FiO2 11/02/24 11:50 60 15 101/40 100 Room Air 0.0 11/02/24 11:00 98.2 Result Diagram: 11/02/2459 11/02/24 06 General: Elderly malnourished female HEENT: Pallor present, PERRLA, no icterus, lymphadenopathy, carotid bruit Respiratory system: Bilateral vesicular breath sounds heard, no adventitious breath sounds CVS: S1-S2 heard, pansystolic murmur present in the mitral area, ejection systolic murmur present in the pulmonic and aortic area GI: Soft, nontender, no organomegaly, no guarding/rigidity, bowel sounds present Neuro: No focal neurological deficits present Extremities: No edema cyanosis clubbing/deformities Skin: Warm and dry, petechiae present Assessment Assessment An 84-year-old female was transferred from [place] in view of drop in hemoglobin to 6.5 and having chronic black tarry stools. Patient was admitted for the evaluation and management of upper GI bleed. Plan Plan Upper GI bleed secondary to anticoagulant use Microcytic hypochromic anemia H/H stable, status post 1 unit PRBC transfusion at OSH EGD showed esophagitis and gastritis, no active bleeding. Recommendations: IV Protonix daily for six weeks, follow up with biopsy results, clear liquids and upgrade as tolerated Hemoglobin every q. 8 H Consider Blood transfusion if hemoglobin trends down to less than 7 Angioplasty/stenting of the Right internal and common carotid artery using embolic protection Paroxysmal AFib, rate controlled Armando Vasc score 3 CAD s/p stent placement Elevated proBNP HELD aspirin for now Continue Plavix 75 mg and Xarelto 15 mg Echo: EF: 55-60%, RVSP: 45 mmHg Held furosemide (home med) as the patient was dry Possible sepsis, unknown source Nonspecific transaminitis, improving Suspicion for chronic pancreatitis CT abdomen: Diffuse pancreatic fatty infiltration and atrophy WBC count, improving Preliminary blood and urine culture negative Continue Rocephin 1gm IV daily Procalcitonin 5.44, lactic acid normal CKD, stage 4 EGFR: 12 Baseline creatinine: 2.4 FENa: 1.3% Continue to monitor BMP, if worsening or stable creatinine consult nephrology Hypertension Continue home medication amlodipine 5 mg as per home meds Hyperlipidemia Continue rosuvastatin as per home meds Code Status: Full code DVT Prophylaxis: SCDs Nutrition: Clear liquid Prognosis: Guarded Disposition: Continue care in PCU, continue to monitor H&H Cr Norman MD Internal Medicine, PGY 1 Date of Service: November 02, 2024 Billing Provider: JOSE A ECHOLS MD, SIVA, RES November 02, 2024 12:06
--- NOTE | 2024-11-02 12:28 | CARDIOLOGY REPORT ---
APPROVED REPORT EXAM: Comprehensive 2D, Doppler, and color-flow Echocardiogram. Patient Location: 3023 A Blood Pressure: 119/43 mmHg Heart Rate: 71 bpm Rhythm: SINUS Indications CONGESTIVE HEART FAILURE STENTS X2 2016 ATRIAL FIBRILLATION S/P CAROTID STENT 3 WEEKS AGO Instructor Physical: David Bowman MD Previous echo: 05/2024 CVC (EF 55-60%, mild LVH, mod TR) 2D Dimensions RVDd 3.0 cm IVSd 1.2 (0.7-1.1cm) LVDd 4.6 cm PWd 1.2 (0.7-1.1cm) IVSs 1.2 (0.8-1.2cm) LVDs 3.6 (2.5-4.0cm) PWs 1.8 (0.8-1.2cm) LVOT Diameter 1.96 (1.8-2.4cm) Ao Asc Diam.3.03 cmFS (%) 20.8 % SV 40.9 ml CO 3.1 L/min M-Mode Dimensions Left Atrium(MM) 3.50 (2.5-4.0cm) Aortic Root 3.33 (2.2-3.7cm) Aortic Cusp Exc 1.89 (1.5-2.0cm) MV EPSS 0.5 (<0.5cm) FS (%) 26 % ESV(Teich) 46.2 ml LVEF(%) 51 (>50%) Aortic Valve AoV Peak Mazin. 197.1 cm/s AoV VTI 38.5 cm AO Peak GR. 15.5 mmHg AO Mean GR. 8 mmHg LVOT VTI 29.99 cm LVOT Peak Mazin. 150.8 cm/s JANE(VTI)/BSA 2.36 cm2/m2 JANE (VTI) 2.36 cm2 Mitral Valve MV E Velocity 80.3 cm/s MV Peak Gr. 4 mmHg MV DECEL TIME 276 ms MV A Velocity 100.9 cm/s MV PHT 60 ms E/A Ratio 0.8 MVA (PHT) 3.67 cm2 MV VMax96.9 cm/s TDI Medial E' P. V 16.48 cm/s E/Medial E' 4.9 Tricuspid Valve TR P. Velocity 297 cm/s RAP ESTIMATE 10 mmHg TR Peak Gr. 35 mmHg RVSP 45 mmHg Pulmonary Vein S1 Velocity 64.1 cm/s D2 Velocity 35.2 cm/s PVa Amkwadgh70.5 cm/s PVa [id number] msec LEFT VENTRICLE Normal LV size and function. Mild concentric hypertrophy. Septal bounce is present. LVEF is 55-60%. RIGHT VENTRICLE RV is normal size and function. RVSP is estimated at 45 mmHg. ATRIA LA size is normal. RA size is normal. AORTIC VALVE Trileaflet AV appears mildly sclerotic without stenosis or insufficiency. MITRAL VALVE Mild MV annular calcification without stenosis. Mild regurgitation. TRICUSPID VALVE TV appears structurally normal with moderate regurgitation. PULMONIC VALVE Normal PV without stenosis, mild insufficiency. GREAT VESSELS Aortic root is normal in size. Ascending aorta is normal in size. PERICARDIUM Normal pericardium. No effusion. Other Information Study Quality: Adequate Conclusion Normal LV size and function. Mild concentric hypertrophy. Septal bounce is present. LVEF is 55-60%. RV is normal size and function. RVSP is estimated at 45 mmHg. LA size is normal. Trileaflet AV appears mildly sclerotic without stenosis or insufficiency. Mild MV annular calcification without stenosis. Mild regurgitation. TV appears structurally normal with moderate regurgitation. Normal PV without stenosis, mild insufficiency. Normal pericardium. No effusion.
[2024-11-02 12:36] LABS: HEMOGLOBIN 7.6 g/dl (12.0-16.0); MEAN CORPUSCULAR HEMOGLOBIN 30.4 PG (27.0-31.0); MEAN CORPUSCULAR HGB CONC 32.9 g/dL (33.0-36.5); MEAN CORPUSCULAR VOLUME 92.4 FL (78-98); PLATELET COUNT 241 X10'3 (140-440); RED CELL DISTRIBUTION WIDTH 17.8 % (11.5-14.5); WHITE BLOOD COUNT 13.8 X10'3 (4.5-11.0)
[2024-11-02] MEDS: clopidogrel 75mg tablet PO SCH (13:06)
--- NOTE | 2024-11-02 14:13 | RADIOLOGY REPORT ---
EXAM: CT CT CHEST History: SUSPICION FOR PNEUMONIA Comparison Study: None TECHNIQUE: Multidetector CT of the chest was performed. Imaging was performed without IV contrast. Ax ial, coronal, and sagittal multiplanar reformats were obtained from the axial data set by the technol dana. Radiation Dose : CTDI vol 10.98 mGy, DLP 393.48 mGy*cm. Findings: Lungs: Minimal bibasilar atelectasis. The lungs are otherwise clear. Pleura: Unremarkable Heart/Great vessels: Mild cardiomegaly with a trace pericardial effusion. Severe coronary atheroscler osis versus stents. Mediastinum: Mildly prominent mediastinal nodes. Soft tissues/Bones: Moderate multilevel degenerative changes of the thoracic spine Enlarged thyroid. The partially visualized upper abdomen is within normal limits. Impression: 1. No acute cardiopulmonary disease. 2. Minimal bibasilar atelectasis. 3. Mildly prominent mediastinal nodes, nonspecific but favored reactive. 4. Enlarged thyroid. Consider further evaluation with a nonemergent, outpatient thyroid ultrasound as clinically indicated. 5. Mild cardiomegaly with trace pericardial effusion.
--- NOTE | 2024-11-02 15:56 | CONSULTATION ---
DATE OF CONSULTATION: 11/02/2024 DICTATING PHYSICIAN: Meek Dowd MD REFERRING PHYSICIAN: Hospital Service. REASON FOR CONSULTATION: Anemia and melena. PRESENT HISTORY: The patient admitted with a fall and weakness, found to have anemia. She was on Xarelto and clopidogrel. Denies any hematemesis, melena, or rectal bleeding herself. PAST MEDICAL HISTORY: Hypertension, coronary artery disease, stenting for coronary artery disease, paroxysmal AFib, cholecystectomy. SOCIAL HISTORY: Nonsmoker, nondrinker. FAMILY HISTORY: Noncontributory. MEDICATIONS: Reviewed from the chart. REVIEW OF SYSTEMS: Negative for cardiovascular, respiratory, genitourinary, neurologic or endocrine complaint. PHYSICAL EXAMINATION: GENERAL: Conscious, alert, oriented. HEENT: Pallor present. Icterus absent. CHEST: Clear. HEART: S1, S2, regular. ABDOMEN: Soft. LABORATORY DATA: WBC 15, hemoglobin and hematocrit 7.5/23, platelets 222. BUN and creatinine 49/3, AST 366, ALT 294, alkaline phosphatase 106, bilirubin 0.8. ASSESSMENT AND PLAN: GI bleeding. We will proceed with upper endoscopy. Risks, benefits, and alternatives were discussed with the patient, understood by her. Meek Dowd MD TID: [id number] RECEIPT: [id number] /MEGHAN
[2024-11-02 17:27] LABS: HEMATOCRIT 23.7 % (35.0-45.0); HEMOGLOBIN 7.8 g/dl (12.0-16.0); MEAN CORPUSCULAR HEMOGLOBIN 30.2 PG (27.0-31.0); MEAN CORPUSCULAR VOLUME 91.7 FL (78-98); MEAN PLATELET VOLUME 8.9 FL (7.4-10.4); PLATELET COUNT 235 X10'3 (140-440); RED BLOOD COUNT 2.59 X10'6 (4.20-5.60); RED CELL DISTRIBUTION WIDTH 17.5 % (11.5-14.5); WHITE BLOOD COUNT 14.2 X10'3 (4.5-11.0)
[2024-11-02] MEDS: rivaroxaban 15mg tablet PO SCH (18:11)
[2024-11-02] MEDS: dronedarone hcl 400mg tablet PO SCH (20:00)
[2024-11-02 23:24] LABS: MEAN CORPUSCULAR HEMOGLOBIN 30.2 PG (27.0-31.0); MEAN CORPUSCULAR HGB CONC 33.1 g/dL (33.0-36.5); MEAN CORPUSCULAR VOLUME 91.3 FL (78-98); PLATELET COUNT 218 X10'3 (140-440); RED CELL DISTRIBUTION WIDTH 17.4 % (11.5-14.5); WHITE BLOOD COUNT 11.8 X10'3 (4.5-11.0)
[2024-11-02 23:28] LABS: HEMATOCRIT 20.1 % (35.0-45.0); HEMOGLOBIN 6.7 g/dl (12.0-16.0)
[2024-11-03] VITALS (10 sets, daily range): BP systolic 124–151; BP diastolic 49–70; PULSE 63–81; RESP 16–21; TEMP 97.5–98.7; O2SAT 95–98
[2024-11-03 06:20] LABS: BASOPHILS # (AUTO) 0.1 X10'3 (0-0.2); BASOPHILS % (AUTO) 0.6 % (0-1); EOSINOPHILS # (AUTO) 0.1 X10'3 (0-0.9); EOSINOPHILS % (AUTO) 0.9 % (0-6); HEMOGLOBIN 9.1 g/dl (12.0-16.0); LYMPHOCYTES # (AUTO) 1.1 X10'3 (1.1-4.8); LYMPHOCYTES % (AUTO) 8.7 % (21-51); MEAN CORPUSCULAR HGB CONC 31.4 g/dL (33.0-36.5); MEAN CORPUSCULAR VOLUME 95.3 FL (78-98); MEAN PLATELET VOLUME 8.5 FL (7.4-10.4); MONOCYTES # (AUTO) 1.3 X10'3 (0-0.9); MONOCYTES % (AUTO) 10.4 % (2-12); NEUTROPHILS % (AUTO) 79.4 % (42-75); PLATELET COUNT 215 X10'3 (140-440); RED BLOOD COUNT 3.04 X10'6 (4.20-5.60); RED CELL DISTRIBUTION WIDTH 18.9 % (11.5-14.5); WHITE BLOOD COUNT 12.6 X10'3 (4.5-11.0)
[2024-11-03 06:40] LABS: ALANINE AMINOTRANSFERASE 207 U/L (12-78); ALBUMIN 2.3 G/DL (3.4-5.0); ALKALINE PHOSPHATASE 104 IU/L (46-116); ANION GAP 11 (8-16); ASPARTATE AMINO TRANSFERASE 211 U/L (10-37); BILIRUBIN,TOTAL 0.6 MG/DL (0.1-1.0); BLOOD UREA NITROGEN 55 MG/DL (7-18); BUN/CREATININE RATIO 13.3 (10.0-20.0); CALCIUM 7.7 MG/DL (8.5-10.1); CHLORIDE 111 MMOL/L (99-107); CREATININE 4.13 MG/DL (0.40-0.90); GLUCOSE 102 MG/DL (70-104); MAGNESIUM 2.2 MG/DL (1.5-2.4); POTASSIUM 3.7 MMOL/L (3.5-5.1); SODIUM 142 MMOL/L (135-145); TOTAL CARBON DIOXIDE 19.8 MMOL/L (24-32); TOTAL PROTEIN 4.7 G/DL (6.4-8.2); eCRCL 8 ML/MIN; eGFR 10 ML/MIN
[2024-11-03] MEDS: furosemide 40mg tablet PO SCH (08:00)
[2024-11-03] MEDS ORDERED: aspirin 81mg, enteric-coated 1 TAB TABLET.DR PO SCH (08:00)
[2024-11-03] MEDS: ferrous sulfate 325mg tablet PO SCH (08:00)
[2024-11-03 08:47] LABS: HEMATOCRIT 26.2 % (35.0-45.0); HEMOGLOBIN 8.8 g/dl (12.0-16.0); MEAN CORPUSCULAR HEMOGLOBIN 30.2 PG (27.0-31.0); MEAN CORPUSCULAR HGB CONC 33.8 g/dL (33.0-36.5); MEAN CORPUSCULAR VOLUME 89.5 FL (78-98); PLATELET COUNT 224 X10'3 (140-440); RED BLOOD COUNT 2.93 X10'6 (4.20-5.60); RED CELL DISTRIBUTION WIDTH 17.3 % (11.5-14.5)
[2024-11-03] MEDS: sodium bicarbonate (8.4%) inj. 100 MEQ in dextrose 5%-water 1,000 ML IV SCH (09:00)
[2024-11-03] MEDS: pantoprazole 40 MG vial IV SCH (09:01)
[2024-11-03] MEDS: amLODIPine 5mg tablet PO SCH (09:03)
[2024-11-03] MEDS: atorvastatin 20mg tablet PO SCH (09:06)
--- NOTE | 2024-11-03 11:46 | CONSULTATION REPORT - RESIDENT ---
Consult Providers to CC Resident Creating Document: MARIELA BANKS RES CC: MENDOZA LUNA MD History of Present Illness Primary Medical Doctor: Dr. Dutton Reason for Admit\Complaint: Anemia and GI bleed History of Present Illness 84-year-old female with history of paroxysmal AFib on Xarelto, s/p right RCA and CCA stenting on Plavix for the past three weeks, CAD status post PCI, CKD-3 transferred to the ER from [facility] fatigue, anemia, melena, And ground level fall. Patient had undergone EGD which showed esophagitis and gastritis. Her hemoglobin was corrected with PRBC transfusions. And her anticoagulation and antiplatelet therapy was resumed. Her creatinine continues to rise up and Nephrology is consulted today for elevated creatinine. For history obtained from patient, she was not aware of any history of CKD. She never had any dialysis before. She does have chronic fatigue. Denies any oliguria or hematuria. Denies any past history of hypertension and diabetes. She is on follow up with her PCP at [place] Allergies: Coded Allergies: HI Inhibitors (Verified Allergy, Unknown, 10/19/24) Penicillins (Unverified Allergy, Unknown, DOES NOT REMEMBER, 11/01/24) RN ASKED FURTHER- NO SOB clarithromycin (Verified Allergy, Unknown, 10/19/24) codeine (Verified Allergy, Unknown, NAUSEA, 01/16/16) levofloxacin (Unverified Allergy, Unknown, 01/16/16) tramadol (Verified Allergy, Unknown, 10/19/24) Uncoded Allergies: MOST ABX (Allergy, Unknown, 01/16/16) Home Medications Home Medications Active Reported Hydrocodon-Acetaminoph 7.5-325 (Hydrocodone Bit/Acetaminophen) 7.5 Mg-325 Mg Tablet 1 Tab PO QID PRN PRN 30 Days Multaq (Dronedarone Hydrochloride) 400 Mg Tablet 1 Tab PO Q12H 30 Days Lansoprazole 15 Mg Capsule.dr 1 Cap PO DAILY 30 Days Aspir 81 (Aspirin) 81 Mg Tablet.dr 1 Tab PO DAILY 30 Days Ferrous Sulfate 325 Mg (65 Mg Iron) Tablet 1 Tab PO DAILY Rosuvastatin Calcium 40 Mg Tablet 1 Tab PO DAILY Amlodipine Besylate 5 Mg Tablet 1 Tab PO DAILY Past Medical History Past Medical History CAD status post PCI Hypertension Paroxysmal AFib on Xarelto Carotid artery stenosis status post right ICA and CCA stenting Past Surgical History Surgical History Comment Cholecystectomy Status post right ICA and CCA stenting Family History Family History: (CAD) Coronary arteriosclerosis FATHER, , Age: 79, Cause: of unknown cause, Onset:60 years & older MOTHER, , Age: 85, Cause: of unknown cause, Onset:60 years & older (CHF) Congestive heart failure FATHER, , Age: 79, Cause: of unknown cause, Onset:Unknown MOTHER, , Age: 85, Cause: of unknown cause, Onset:Unknown Past Social History Social History Comment Denies smoking, alcohol, illicit drug use, lives with her daughter, ROS ROS ROS Constitutional: No fever, positive for dizziness, weakness. no change in appetite/weight HEENT: No blurring of the vision, No sore throat, epistaxis, tinnitus Cardiovascular: No chest pain/discomfort, palpitations, syncope. No pedal edema Respiratory: No sob, cough,, hemoptysis Gastrointestinal: No abdominal pain, nausea, vomiting. No diarrhea, constipation, melena.present Genitourinary: No frquency, urgency, incontinence, nocturia. No dysuria, hematuria Musculoskeletal: No arthralgia, myalgia Endocrine: fatigue present, polydipsia, polyuria. No heat or cold intolerance Neurologic: No headache, vertigo. No weakness, numbness or tingling of extremities Psychiatric: No hallucinations/delusions, no anhedonia, no suicidal ideation\ Hematologic: No bleeding or bruises Reviewed in full. All negative except for pertinent positives in HPI Exam Vitals: Vital Signs Date Time Temp Pulse Resp B/P (MAP) Pulse Ox O2 Delivery O2 Flow Rate FiO2 11/03/24 09:03 68 11/03/24 08:00 Room Air 11/03/24 06:00 98.3 18 126/60 (82) 98 11/02/24 11:50 0.0 General: General: Elderly female, AAO x4, appears pale, not in apparent distress Head: Normocephalic with an atraumatic Eyes: Pupils- 3mm, reacting to light, conjunctiva- anicteric Nose and throat: No polyps, septum- normal, no mucosal ulcers Neck: Supple, no lymphadenopathy, no carotid bruit Respiratory: No use of accessory muscles of respiration, Bilateral normal vesiscular breath sounds heard. No wheeze, rhochi or creps Cardiac: S1-S2 heard, rythm regular, systolic murmur in the mitral area Abdomen: non distended, no tenderness, no organomegaly, bowel sounds- heard Extremities: no clubbing, nonpitting edema with tenderness present over both ankle no deformities, peripheral pulses- 2+ Skin: warm and dry, no rash, purpura over both forearms Neuro: No focal deficit, gross cranial nerve exam- normal Diagnostic Data Last Recorded Lab Results: 11/03/24 0814 11/03/24 0600 Additional Plan 84-year-old female with history of paroxysmal AFib on Xarelto, s/p right RCA and CCA stenting on Plavix for the past three weeks, CAD status post PCI, CKD-3 transferred to the ER from [facility] fatigue, anemia, melena, And ground level fall. Nephrology is consulted for elevated creatinine TUYET on CKD -baseline creatinine in 2022 was 1.35 and in September 2024 was 2.16 -current creatinine trends 4.13>>3.5>>3.06>>2.95, urinalysis no casts, renal ultrasound pending -documented urine output was 1850 yesterday however from today morning patient had only like dark color urine of 30 cc -initially received IV fluids which were discontinued, -patient appears dry -fena-1.3, unreliable as patient is on diuretic -will obtain Feurea -currently on IV fluids of bicarb/D5 at 50 cc/hour -hold Lasix -start on LR at 50 cc/hour -monitor BMP and strict input output chart -follow up on phosphorus and PTH Non-anion gap Metabolic acidosis -likely secondary to TUYET on CKD -continue 100 meq bicarb/D5W at 50 cc per hr Normocytic anemia Hemoglobin 8 after PRBC transfusion EGD showed esophagitis and gastritis Continue Protonix Follow up on iron profile Proteinuria -workup ordered for proteinuria including workup for multiple myeloma, STEPHANIE, C3- C4 Thank you for this interesting consult. We will continue to follow the patient along with you Mariela Banks MD IM resident Attending note: thge patient was seen in the Nuclear medicine GI scan. She is very pleasant and is stable currently however, she is appearing v olume depleted. will give her more fluids at this time and see if the pre renal componeent gets better. Discussed with the resident. care plan reviewed with the resident. Agree with the above note. Mendoza Luna MD Nephrology/CCM Date of Service: November 03, 2024 Billing Provider: MENDOZA LUNA MD [facility] November 03, 2024 11:46 MENDOZA LUNA MD November 03, 2024 19:41
[2024-11-03] MEDS: ringers solution, lacted 1,000 ML IV SCH (13:20)
[2024-11-03] MEDS: HYDROcodone/acetaminophen 5mg/325mg tablet PO PRN (15:34)
[2024-11-03 17:19] LABS: HEMATOCRIT 26.5 % (35.0-45.0); HEMOGLOBIN 8.9 g/dl (12.0-16.0); MEAN CORPUSCULAR HEMOGLOBIN 29.6 PG (27.0-31.0); MEAN CORPUSCULAR HGB CONC 33.4 g/dL (33.0-36.5); MEAN CORPUSCULAR VOLUME 88.6 FL (78-98); MEAN PLATELET VOLUME 8.3 FL (7.4-10.4); PLATELET COUNT 239 X10'3 (140-440); RED BLOOD COUNT 2.99 X10'6 (4.20-5.60); WHITE BLOOD COUNT 11.6 X10'3 (4.5-11.0)
--- NOTE | 2024-11-03 18:30 | PROGRESS NOTE- Residence ---
Progress Note - Resident Providers to CC Resident Creating Document: CR NORMAN RES CC: JOSE A ECHOLS MD ~ Antibiotic Timeout Antibiotic Ordered?: Yes Subjective Patient was examined at bedside. Patient had one episode of black tarry stool last night, hemoglobin dropped down to less than seven, transfusion of 1 unit of blood, his hemoglobin improved this morning. But on continuous monitoring HGB seems to be downtrending. Objective Vital Signs Date Time Temp Pulse Resp B/P (MAP) Pulse Ox O2 Delivery O2 Flow Rate FiO2 11/03/24 15:34 16 11/03/24 09:03 68 11/03/24 08:00 Room Air 11/03/24 06:00 98.3 126/60 (82) 98 11/02/24 11:50 0.0 Result Diagram: 11/03/24 0814 11/03/24 0600 General: Elderly malnourished female HEENT: Pallor present, PERRLA, no icterus, lymphadenopathy, carotid bruit Respiratory system: Bilateral vesicular breath sounds heard, no adventitious breath sounds CVS: S1-S2 heard, pansystolic murmur present in the mitral area, ejection systolic murmur present in the pulmonic and aortic area GI: Soft, nontender, no organomegaly, no guarding/rigidity, bowel sounds present Neuro: No focal neurological deficits present Extremities: No edema cyanosis clubbing/deformities Skin: Warm and dry, petechiae present Assessment Assessment An 84-year-old female was transferred from [place] in view of drop in hemoglobin to 6.5 and having chronic black tarry stools. Patient was admitted for the evaluation and management of upper GI bleed. Plan Plan Upper GI bleed secondary to anticoagulant use Microcytic hypochromic anemia H/H downtrending, 1 unit transfusion last night EGD showed esophagitis and gastritis, no active bleeding. Recommendations: IV Protonix daily for six weeks, follow up with biopsy results, clear liquids and upgrade as tolerated. Appreciate recommendations Hemoglobin every q. 8 H Consider Blood transfusion if hemoglobin trends down to less than 7 Follow up with bleeding scan Follow up with iron profile IV iron supplementation Angioplasty/stenting of the Right internal and common carotid artery using embolic protection Paroxysmal AFib, rate controlled Armando Vasc score 3 CAD s/p stent placement Elevated proBNP HELD aspirin for now and Xarelto [address] Bowman's recommendations. 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 Nephrology recommended IV fluids bicarb/D5 at 50 cc/hour, LR at 50 cc/hour. Follow up on phosphorus and PTH Continue to monitor BMP and strict I/O chart. Appreciate recs. Actively watch for any fluid overload. Proteinuria Follow up with multiple myeloma, STEPHANIE, C3-C4 workup Hypertension Continue home medication amlodipine 5 mg as per home meds Hyperlipidemia Continue rosuvastatin as per home meds Code Status: Full code DVT Prophylaxis: SCDs Nutrition: Clear liquid Prognosis: Guarded Disposition: Continue care in PCU, continue to monitor H&H, actively watch for any fluid overload Cr Norman MD Internal Medicine, PGY 1 Date of Service: November 03, 2024 Billing Provider: JOSE A ECHOLS MD,CR, RES November 03, 2024 18:30
[2024-11-03 19:06] LABS: % IRON SATURATION 5 % (11-46); IRON 16 UG/DL (49-151); TOTAL IRON BINDING CAPACITY 291 UG/DL (259-388)
--- NOTE | 2024-11-03 19:59 | RADIOLOGY REPORT ---
EXAM: NM NM GI BLOOD LOSS SCAN History: active bleeding Comparison Study: None TECHNIQUE: Following the radiopharmaceutical, anterior dynamic images of the abdomen and pelvis wer e acquired during 60 minutes. CONTRAST MEDIA AND RADIOPHARMACEUTICALS: FINDINGS: Images demonstrate no focus of tagged red blood cell uptake characteristic of an active GI bleed. There is physiologic distribution in the blood pool of the abdominal aorta, iliac, femoral arteries, the liver and spleen. Later images show normal accumulation of the right the tracer in the urinary bl adder. There is no definite evidence of any focal radioactive uptake along the visualized regions of the abdomen to suggest active gastrointestinal bleeding. IMPRESSION: 1. No scintigraphic evidence of active GI bleeding during the 60 minute acquisition period.
--- NOTE | 2024-11-03 20:49 | RADIOLOGY REPORT ---
INDICATION: increased cr TECHNIQUE: Multiple real-time sonographic images of the kidneys and bladder were obtained. COMPARISON: CT abdomen and pelvis 11/01/2024 FINDINGS: The right kidney measures 9.4 x 4.2 x 5.3 cm cm in length, which is normal in size. There is increas ed cortical echogenicity of the right kidney. No hydronephrosis. 2.7 cm cyst of the interpolar region with 2.4 cm cyst over the upper pole. The left kidney measures 10.7 x 5.5 x 5.9 cm cm in length, which is normal in size. There is increas ed cortical echogenicity of the left kidney. No hydronephrosis. 2.3 cm lower pole cyst is noted. Urinary bladder is distended. Otherwise unremarkable. Urinary bladder volume of 667 cc. Bilateral u reteral jets are not visualized. IMPRESSION: There is increased cortical echogenicity of the kidneys. Correlate for medical renal disease. No hydronephrosis bilaterally. Bilateral renal cysts. Distended urinary bladder with urinary bladder volume of 667 cc. Consider weeks catheter placement if patient unable to void.
[2024-11-04] VITALS (7 sets, daily range): BP systolic 130–156; BP diastolic 48–69; PULSE 72–83; RESP 14–18; TEMP 97.3–98.4; O2SAT 95–98
[2024-11-04 02:14] LABS: HEMATOCRIT 26.2 % (35.0-45.0); HEMOGLOBIN 8.8 g/dl (12.0-16.0); MEAN CORPUSCULAR HEMOGLOBIN 29.8 PG (27.0-31.0); MEAN CORPUSCULAR HGB CONC 33.8 g/dL (33.0-36.5); MEAN CORPUSCULAR VOLUME 88.2 FL (78-98); MEAN PLATELET VOLUME 8.6 FL (7.4-10.4); PLATELET COUNT 225 X10'3 (140-440); RED BLOOD COUNT 2.97 X10'6 (4.20-5.60); RED CELL DISTRIBUTION WIDTH 17.2 % (11.5-14.5); WHITE BLOOD COUNT 9.4 X10'3 (4.5-11.0)
[2024-11-04 06:18] LABS: ALANINE AMINOTRANSFERASE 172 U/L (12-78); ALBUMIN 2.1 G/DL (3.4-5.0); ALBUMIN/GLOBULIN RATIO 0.9 (1.1-1.5); ALKALINE PHOSPHATASE 102 IU/L (46-116); ANION GAP 12 (8-16); ASPARTATE AMINO TRANSFERASE 141 U/L (10-37); BILIRUBIN,TOTAL 0.4 MG/DL (0.1-1.0); BLOOD UREA NITROGEN 54 MG/DL (7-18); BUN/CREATININE RATIO 11.9 (10.0-20.0); CALCIUM 7.5 MG/DL (8.5-10.1); CHLORIDE 107 MMOL/L (99-107); CREATININE 4.52 MG/DL (0.40-0.90); GLUCOSE 153 MG/DL (70-104); MAGNESIUM 2.2 MG/DL (1.5-2.4); PHOSPHORUS 4.6 MG/DL (2.3-4.5); POTASSIUM 3.3 MMOL/L (3.5-5.1); SODIUM 142 MMOL/L (135-145); TOTAL CARBON DIOXIDE 22.7 MMOL/L (24-32); TOTAL PROTEIN 4.5 G/DL (6.4-8.2); eCRCL 7 ML/MIN; eGFR 9 ML/MIN
[2024-11-04 06:21] LABS: BASOPHILS # (AUTO) 0.1 X10'3 (0-0.2); BASOPHILS % (AUTO) 0.6 % (0-1); EOSINOPHILS # (AUTO) 0.2 X10'3 (0-0.9); EOSINOPHILS % (AUTO) 2.1 % (0-6); HEMATOCRIT 26.5 % (35.0-45.0); HEMOGLOBIN 8.8 g/dl (12.0-16.0); LYMPHOCYTES # (AUTO) 0.9 X10'3 (1.1-4.8); LYMPHOCYTES % (AUTO) 10.1 % (21-51); MEAN CORPUSCULAR HEMOGLOBIN 29.9 PG (27.0-31.0); MEAN CORPUSCULAR HGB CONC 33.4 g/dL (33.0-36.5); MEAN CORPUSCULAR VOLUME 89.5 FL (78-98); MEAN PLATELET VOLUME 8.8 FL (7.4-10.4); MONOCYTES # (AUTO) 1.3 X10'3 (0-0.9); MONOCYTES % (AUTO) 14.1 % (2-12); NEUTROPHILS # (AUTO) 6.7 X10'3 (1.8-7.7); NEUTROPHILS % (AUTO) 73.1 % (42-75); PLATELET COUNT 227 X10'3 (140-440); RED BLOOD COUNT 2.96 X10'6 (4.20-5.60); RED CELL DISTRIBUTION WIDTH 17.4 % (11.5-14.5); WHITE BLOOD COUNT 9.2 X10'3 (4.5-11.0)
[2024-11-04] MEDS ORDERED: iron sucrose complex injection 200 MG in normal saline 100ml IV soln 100 ML IV SCH (08:00)
[2024-11-04 08:59] LABS: THYROID STIMULATING HORMONE 2.09 ulU/ml (0.34-4.50)
[2024-11-04 09:27] LABS: HEMOGLOBIN 9.4 g/dl (12.0-16.0); MEAN CORPUSCULAR HEMOGLOBIN 29.6 PG (27.0-31.0); MEAN CORPUSCULAR HGB CONC 33.5 g/dL (33.0-36.5); MEAN CORPUSCULAR VOLUME 88.2 FL (78-98); MEAN PLATELET VOLUME 8.9 FL (7.4-10.4); PLATELET COUNT 254 X10'3 (140-440); RED BLOOD COUNT 3.17 X10'6 (4.20-5.60); RED CELL DISTRIBUTION WIDTH 17.2 % (11.5-14.5); WHITE BLOOD COUNT 9.6 X10'3 (4.5-11.0)
--- NOTE | 2024-11-04 09:39 | PATHOLOGY REPORT ---
[facility] [address] [place] [address] SURGICAL PATHOLOGY REPORT CaseNumber: [id number] Surgeon:Meek Dowd N.P. CLINICAL INFORMATION CLINICAL INFORMATION: Melena. DIAGNOSIS DIAGNOSIS: A.STOMACH; BIOPSY - INACTIVE CHRONIC GASTRITIS, MILD. - NEGATIVE FOR H. PYLORI. - NEGATIVE FOR INTESTINAL METAPLASIA. DIAGNOSIS: B.GASTROESOPHAGEAL JUNCTION; BIOPSY - INACTIVE CHRONIC GASTRITIS, MODERATE. - NO JUNCTIONAL MUCOSA IS IDENTIFIED - INTESTINAL METAPLASIA IS NOT IDENTIFIED. MICROSCOPIC DESCRIPTION A. STOMACH MICROSCOPIC DESCRIPTION: A single H&E slide with multiple levels of gastric mucosa is reviewed. The gastric biopsy shows mild chronic gastritis. The foveolar cells show mild reactive changes and reduce d apical mucin. The lamina propria is expanded by lymphocytes and plasma cells; no neutrophilic (acti ve) inflammation is identified. There is no evidence of dysplasia or neoplasia. No H pylori organisms are seen. B. GASTROESOPHAGEAL JUNCTION MICROSCOPIC DESCRIPTION: 1 H&E stained slide is reviewed. It shows multiple levels of gastric cardia type mucosa with reactive epithelial changes. The lamina propria shows expansion by aggregates of p lasma cells and lymphocytes. The epithelial cells show mildly increased NC ratios, hyperchromasia, a nd reduced apical mucin. A fragment of granulation tissue is identified. I do not see definitive ev idence of intestinal metaplasia, and no H. pylori type organisms are identified on routine staining. I do not see any intraepithelial neutrophils, nor convincing evidence of dysplasia. Overall the his tologic findings are most consistent with moderate inactive chronic gastritis. GROSS DESCRIPTION A. STOMACH GROSS DESCRIPTION: Received in a container of formalin labeled with the patient's name, number, and " gastric BX" are 3 pieces of oseguera tissue 0.2-0.4 x 0.3 x 0.1 cm. The specimen is entirely submitted as A1. The time at which the specimen was removed was 1114. The time at which the specimen was placed in formalin was 1119. B. GASTROESOPHAGEAL JUNCTION GROSS DESCRIPTION: Received in a container of formalin labeled with the patient's name, number, and " GE junction BX" are 2 pieces of oseguera tissue 0.2 and 0.4 x 0.2 x 0.1 cm. The specimen is entirely submi tted as B1. The time at which the specimen was removed was 1115. The time at which the specimen was p laced in formalin was 1119. Electronically signed by: Narciso Mendoza, 11/04/2024 9:09:00 AM
--- NOTE | 2024-11-04 12:57 | PROGRESS NOTE- Residence ---
Progress Note - Resident Providers to CC Resident Creating Document: MARIELA BANKS RES CC: RL OBREGON III DO ~ Central Line/PICC still needed: N\A Antibiotic Timeout Antibiotic Ordered?: Yes Subjective Seen this morning. She is with her sister who is also her small animal caretaker. She denies any shortness of breath. Her complaints are she is feeling weak and is not able to walk. Discussed with patient and her sister regarding the deterioration of kidney function and she might likely needs dialysis if it is not improving. They agreed to go for dialysis if needed. Objective Vital Signs Date Time Temp Pulse Resp B/P (MAP) Pulse Ox O2 Delivery O2 Flow Rate FiO2 11/04/24 10:30 97.7 72 14 136/57 (83) 95 Room Air 11/02/24 11:50 0.0 Result Diagram: 11/04/2430 11/04/24 0541 General: Elderly female, AAO x4, appears pale, not in apparent distress Head: Normocephalic with an atraumatic Eyes: Pupils- 3mm, reacting to light, conjunctiva- anicteric Nose and throat: No polyps, septum- normal, no mucosal ulcers Neck: Supple, no lymphadenopathy, no carotid bruit Respiratory: No use of accessory muscles of respiration, Bilateral normal vesiscular breath sounds heard. No wheeze, rhochi or creps Cardiac: S1-S2 heard, rythm regular, systolic murmur in the mitral area Abdomen: non distended, no tenderness, no organomegaly, bowel sounds- heard Extremities: no clubbing, nonpitting edema with tenderness present over both ankle no deformities, peripheral pulses- 2+ Skin: warm and dry, no rash, purpura over both forearms Neuro: No focal deficit, gross cranial nerve exam- normal Assessment Assessment 84-year-old female with history of paroxysmal AFib on Xarelto, s/p right RCA and CCA stenting on Plavix for the past three weeks, CAD status post PCI, CKD-3 transferred to the ER from [facility] fatigue, anemia, melena, And ground level fall. Nephrology is consulted for elevated creatinine Plan Plan TUYET on CKD -baseline creatinine in 2022 was 1.35 and in September 2024 was 2.16 -current creatinine trends 4.5>>4.13>>3.5>>3.06>>2.95, urinalysis no casts -renal us- increased echogenecity, with distended bladder of 650 cc -bladder scan done last night sodium 600 cc and today morning also 700 cc -patient appears dry -fena-1.3, unreliable as patient is on diuretic -feurea-70, regaining intrinsic TUYET PLAN -increase LR to 75 cc/hour, monitor for signs of fluid overload -bladder scan q.6 and do straight cath if bladder volume more than 300 cc -monitor BMP and strict input output chart Non-anion gap Metabolic acidosis -likely secondary to TUYET on CKD -biCarb improved to 22 -DC bicarb drip Mild hypokalemia -potassium replacement per protocol Normocytic anemia Hemoglobin 8 after PRBC transfusion EGD showed esophagitis and gastritis Continue Protonix Iron low, TSAT-Low, ferritin normal, TIBC normal Proteinuria -workup ordered for proteinuria including workup for multiple myeloma, STEPHANIE, C3- C4 Thank you for this interesting consult. We will continue to follow the patient along with you Mariela Banks MD IM resident Date of Service: November 04, 2024 Billing Provider: RL OBREGON III, HARIVARSHA, RES November 04, 2024 12:57
--- NOTE | 2024-11-04 15:30 | PROGRESS NOTE- Residence ---
Progress Note - Resident Providers to CC Resident Creating Document: CR AKBAR, JOSE CC: JOSE A ECHOLS MD ~ Antibiotic Timeout Antibiotic Ordered?: Yes Subjective Patient was seen this morning, with her sister at bedside who is completely aware of the situation and has been explained about her clinical condition patient was not have any complaints of shortness of breaths or respiratory distress. Patient states that she feels much better. Did not have any black tarry stools since yesterday. Objective Vital Signs Date Time Temp Pulse Resp B/P (MAP) Pulse Ox O2 Delivery O2 Flow Rate FiO2 11/04/24 10:30 97.7 72 14 136/57 (83) 95 Room Air 11/02/24 11:50 0.0 Result Diagram: 11/04/2430 11/04/24 0541 General: Elderly malnourished female HEENT: Pallor present, PERRLA, no icterus, lymphadenopathy, carotid bruit Respiratory system: Bilateral vesicular breath sounds heard, no adventitious breath sounds CVS: S1-S2 heard, grade 3/6 ejection systolic murmur present in the pulmonic and aortic area GI: Soft, nontender, no organomegaly, no guarding/rigidity, bowel sounds present Neuro: No focal neurological deficits present Extremities: No edema cyanosis clubbing/deformities Skin: Warm and dry, petechiae present Assessment Assessment An 84-year-old female was transferred from [place] in view of drop in hemoglobin to 6.5 and having chronic black tarry stools. Patient was admitted for the evaluation and management of upper GI bleed. Plan Plan Upper GI bleed secondary to anticoagulant use Microcytic hypochromic anemia H/H stable EGD showed esophagitis and gastritis, no active bleeding. Recommendations: IV Protonix daily for six weeks, follow up with biopsy results, clear liquids and upgrade as tolerated. Appreciate recommendations Hemoglobin every q. 8 H Consider Blood transfusion if hemoglobin trends down to less than 7 Bleeding scan negative for any active bleeding Low iron and% saturation, continue IV iron supplementation Angioplasty/stenting of the Right internal and common carotid artery using embolic protection Paroxysmal AFib, rate controlled Armando Vasc score 3 CAD s/p stent placement Elevated proBNP HELD aspirin for now and Xarelto [address] Bowman's recommendations. 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 Recommend straight cath patient has urinary retention again. Might consider Velasquez's if this continues Baseline creatinine: 2.4 FENa: 1.3% Worsening creatinine. Nephrology recommended LR at 75 cc/hour. DC bicarb drip. Follow up on phosphorus and PTH Continue to monitor BMP and strict I/O chart. Appreciate recs. Actively watch for any fluid overload. Proteinuria Follow up with multiple myeloma, STEPHANIE, C3-C4 workup Hypertension Continue home medication amlodipine 5 mg as per home meds Hyperlipidemia Continue rosuvastatin as per home meds Code Status: Full code DVT Prophylaxis: SCDs Nutrition: Clear liquid Prognosis: Guarded Disposition: Continue care in PCU, continue to monitor H&H, actively watch for any fluid overload Cr Akbar MD Internal Medicine, PGY 1 Date of Service: November 04, 2024 Billing Provider: JOSE A ECHOLS MD,CR, RES November 04, 2024 15:30
[2024-11-04 19:34] LABS: MEAN CORPUSCULAR HEMOGLOBIN 29.5 PG (27.0-31.0); MEAN CORPUSCULAR HGB CONC 33.3 g/dL (33.0-36.5); MEAN CORPUSCULAR VOLUME 88.4 FL (78-98); MEAN PLATELET VOLUME 8.7 FL (7.4-10.4); PLATELET COUNT 264 X10'3 (140-440); RED BLOOD COUNT 3.06 X10'6 (4.20-5.60); RED CELL DISTRIBUTION WIDTH 16.3 % (11.5-14.5); WHITE BLOOD COUNT 8.6 X10'3 (4.5-11.0)
[2024-11-04] MEDS ORDERED: magnesium sulf-water 4G/100mL 100 ML IV PRN (19:40)
[2024-11-04] MEDS ORDERED: magnesium Cl slow-release 64mg tablet PO PRN (19:40)
[2024-11-04] MEDS ORDERED: magnesium sulf-water 2g/50mL 50 ML IV PRN (19:40)
[2024-11-04] MEDS ORDERED: potassium Cl 40MEQ/1/2NS 520ml 520 ML IV PRN (19:40)
[2024-11-04] MEDS ORDERED: potassium Cl 20 mEq SR tablet PO PRN (19:40)
[2024-11-04] MEDS: K and/or MAG REPLACEMENT MC SCH (20:16)
[2024-11-04] MEDS: potassium Cl 20 mEq SR tablet PO PRN (20:17)
[2024-11-05] VITALS (11 sets, daily range): BP systolic 106–157; BP diastolic 47–59; PULSE 66–87; RESP 12–23; TEMP 97–98; O2SAT 96–98
[2024-11-05 06:13] LABS: BASOPHILS # (AUTO) 0.1 X10'3 (0-0.2); EOSINOPHILS # (AUTO) 0.3 X10'3 (0-0.9); EOSINOPHILS % (AUTO) 4.4 % (0-6); HEMATOCRIT 22.9 % (35.0-45.0); HEMOGLOBIN 7.6 g/dl (12.0-16.0); LYMPHOCYTES % (AUTO) 14.9 % (21-51); MEAN CORPUSCULAR HEMOGLOBIN 29.6 PG (27.0-31.0); MEAN CORPUSCULAR HGB CONC 33.4 g/dL (33.0-36.5); MEAN CORPUSCULAR VOLUME 88.7 FL (78-98); MEAN PLATELET VOLUME 8.8 FL (7.4-10.4); MONOCYTES # (AUTO) 1.3 X10'3 (0-0.9); MONOCYTES % (AUTO) 19.3 % (2-12); NEUTROPHILS % (AUTO) 60.4 % (42-75); PLATELET COUNT 219 X10'3 (140-440); RED BLOOD COUNT 2.58 X10'6 (4.20-5.60); RED CELL DISTRIBUTION WIDTH 16.8 % (11.5-14.5); WHITE BLOOD COUNT 6.7 X10'3 (4.5-11.0)
[2024-11-05 06:26] LABS: ALANINE AMINOTRANSFERASE 143 U/L (12-78); ALBUMIN 1.8 G/DL (3.4-5.0); ALBUMIN/GLOBULIN RATIO 0.9 (1.1-1.5); ALKALINE PHOSPHATASE 98 IU/L (46-116); ANION GAP 11 (8-16); ASPARTATE AMINO TRANSFERASE 139 U/L (10-37); BILIRUBIN,TOTAL 0.4 MG/DL (0.1-1.0); BLOOD UREA NITROGEN 53 MG/DL (7-18); BUN/CREATININE RATIO 12.1 (10.0-20.0); CALCIUM 7.4 MG/DL (8.5-10.1); CHLORIDE 111 MMOL/L (99-107); CREATININE 4.37 MG/DL (0.40-0.90); GLUCOSE 106 MG/DL (70-104); PHOSPHORUS 3.8 MG/DL (2.3-4.5); POTASSIUM 3.8 MMOL/L (3.5-5.1); SODIUM 145 MMOL/L (135-145); TOTAL CARBON DIOXIDE 23.5 MMOL/L (24-32); TOTAL PROTEIN 3.8 G/DL (6.4-8.2); eCRCL 8 ML/MIN; eGFR 10 ML/MIN
[2024-11-05 07:42] LABS: TOTAL CELLS COUNTED 100
[2024-11-05 07:43] LABS: ANISOCYTOSIS 1+
[2024-11-05 07:44] LABS: PLATELET ESTIMATE NORMAL
[2024-11-05] MEDS: pantoprazole 40mg Tablet.DR PO SCH (08:49)
[2024-11-05] MEDS: losartan 25mg tablet PO SCH (08:50)
--- NOTE | 2024-11-05 09:12 | PROGRESS NOTE- Residence ---
Progress Note - Resident Providers to CC Resident Creating Document: MARIELA BANKS RES CC: RL OBREGON III DO ~ Central Line/PICC still needed: N\A Antibiotic Timeout Antibiotic Ordered?: Yes Subjective Patient is seen this morning. She said that is drinking good water and is peeing well. No other complaints. Intermittent retaining urine, last night she had bladder scan of 650 cc and had undergone straight cath Objective Vital Signs Date Time Temp Pulse Resp B/P (MAP) Pulse Ox O2 Delivery O2 Flow Rate FiO2 11/05/24 08:50 66 11/05/24 06:00 97.4 16 141/54 (83) 97 Room Air 11/02/24 11:50 0.0 Result Diagram: 11/05/24 0533 11/05/24532 General: Elderly female, AAO x4, appears pale, not in apparent distress Head: Normocephalic with an atraumatic Eyes: Pupils- 3mm, reacting to light, conjunctiva- anicteric Nose and throat: No polyps, septum- normal, no mucosal ulcers Neck: Supple, no lymphadenopathy, no carotid bruit Respiratory: No use of accessory muscles of respiration, Bilateral normal vesiscular breath sounds heard. No wheeze, rhochi or creps Cardiac: S1-S2 heard, rythm regular, systolic murmur in the mitral area Abdomen: non distended, no tenderness, no organomegaly, bowel sounds- heard Right groin ecchymosis present, tenderness present, no visible mass, able to feel a right femoral, and right dorsalis pedis Extremities: no clubbing, nonpitting edema with tenderness present over both ankle no deformities, peripheral pulses- 2+ Skin: warm and dry, no rash, purpura over both forearms Neuro: No focal deficit, gross cranial nerve exam- normal Assessment Assessment 84-year-old female with history of paroxysmal AFib on Xarelto, s/p right RCA and CCA stenting on Plavix for the past three weeks, CAD status post PCI, CKD-3 transferred to the ER from [facility] fatigue, anemia, melena, And ground level fall. Nephrology is consulted for elevated creatinine Plan Plan TUYET on CKD Urinary retention -baseline creatinine in 2022 was 1.35 and in September 2024 was 2.16 -current creatinine trends 4.3>.4.5>>4.13>>3.5>>3.06>>2.95, urinalysis no casts -creatinine appears to be plateaued, likely suspect TUYET/ATN secondary to hypotension, dehydration -renal us- increased echogenecity, -fena-1.3, unreliable as patient is on diuretic -feurea-70, regaining intrinsic TUYET PLAN -patient had about 1000 cc since today morning. Velasquez catheter was inserted. Likely post ATN diuresis -increased fluids to LR 125 cc/hour, Monitor for fluid overload -monitor BMP and strict input output chart -no need for HD today -primary team started losartan, would not recommend starting losartan as the patient is still having TUYET, could be started once the TUYET is resolved -repeat UA today Non-anion gap Metabolic acidosis -likely secondary to TUYET on CKD -biCarb improved to 23 -DC bicarb drip Mild hypokalemia -potassium replacement per protocol Normocytic anemia Hemoglobin 8 after PRBC transfusion EGD showed esophagitis and gastritis Continue Protonix Iron low, TSAT-Low, ferritin normal, TIBC normal Proteinuria -workup ordered for proteinuria including workup for multiple myeloma, STEPHANIE, C3- C4 Right groin mass -informed to primary team regarding CT abdomen/pelvis look for any groin hematoma Thank you for this interesting consult. We will continue to follow the patient along with you Mariela Banks MD IM resident Date of Service: November 05, 2024 Billing Provider: RL OBREGON III, HARIVARSHA, RES November 05, 2024 09:12
[2024-11-05 11:11] LABS: ANTINUCLEAR ANTIBODIES Negative (Negative)
[2024-11-05] MEDS: LidoCAINE 2% Topical Jelly 11mL syringe (UROJET) TOP ONE (13:20)
[2024-11-05 13:30] LABS: ANTISTREPTOLYSIN O AB 23.6 IU/mL (0.0-200.0); COMPLEMENT C4, SERUM 25 mg/dL (12-38); IMMUNOGLOBULIN A, QN, SERUM 97 mg/dL (64-422); IMMUNOGLOBULIN G, QN, SERUM 428 mg/dL (586-1602); IMMUNOGLOBULIN M, QN, SERUM 52 mg/dL (26-217)
[2024-11-05] MEDS ORDERED: LIDOcaine 2% Viscous 15ml cup ONE (15:28)
[2024-11-05] MEDS ORDERED: propofol 10mg/ml 20ml vial IV ONE (15:37)
--- NOTE | 2024-11-05 17:33 | PROGRESS NOTE ---
Progress Note Cardiology Providers to CC ~ Subjective Subjective Patient is status post recent right ICA stent on October 19, 2024. Presented with GI bleed with black tarry stools on November 01. Her Plavix was temporarily held in the has been resumed. Nursing concerned about right femoral nodule at her cath site. Objective Result Diagram: 11/05/2453211/05/24532 Objective Right femoral cath site with a small nodule. Femoral pulses strong. No ecchymosis or swelling. There is no hematoma. Problem\Assessment\Plan Additional Plan Carotid artery stenosis Continue Plavix 75 mg daily Follow up ultrasound as scheduled Atrial fibrillation Oral anticoagulation on hold given GI bleed resume OAC when able. consider LAAO (eval outpatient) Upper GI bleed EGD with gastritis, esophagitis with no active bleeding Has received 1 unit packed red blood cells Acute kidney injury Receiving IV hydration Discussed with Dr. Monica Bowman. Supervising Physician: GINETTE Deng NP November 05, 2024 17:33
--- NOTE | 2024-11-05 17:35 | PROGRESS NOTE- Residence ---
Progress Note - Resident Providers to CC Resident Creating Document: CR AKBAR RES CC: JOSE A ECHOLS MD ~ Antibiotic Timeout Antibiotic Ordered?: Yes Subjective Patient was examined at bedside this morning. Patient had one episode of black tarry stool last night, patient continues to retain urine. Today she retained about 700 cc of urine, therefore Velasquez's placed Objective Vital Signs Date Time Temp Pulse Resp B/P (MAP) Pulse Ox O2 Delivery O2 Flow Rate FiO2 11/05/24 16:40 76 16 122/51 96 Room Air 11/05/24 11:00 97.4 11/02/24 11:50 0.0 Result Diagram: 11/05/2453211/05/24532 General: Elderly malnourished female HEENT: Pallor present, PERRLA, no icterus, lymphadenopathy, carotid bruit Respiratory system: Bilateral vesicular breath sounds heard, no adventitious breath sounds CVS: S1-S2 heard, grade 3/6 ejection systolic murmur present in the pulmonic and aortic area GI: Soft, nontender, no organomegaly, no guarding/rigidity, bowel sounds present Neuro: No focal neurological deficits present Extremities: No edema cyanosis clubbing/deformities Skin: Warm and dry, petechiae present Assessment Assessment An 84-year-old female was transferred from [place] in view of drop in hemoglobin to 6.5 and having chronic black tarry stools. Patient was admitted for the evaluation and management of upper GI bleed. Plan Plan Upper GI bleed secondary to anticoagulant use Microcytic hypochromic anemia H/H downtrending Repeat EGD showed nonbleeding gastric ulcer, recommended colonoscopy in a.m. appreciate recommendations Recommendations: IV Protonix daily for six weeks, follow up with biopsy results, clear liquids and upgrade as tolerated. Appreciate recommendations Hemoglobin every q. 8 H Consider Blood transfusion if hemoglobin trends down to less than 7 Bleeding scan negative for any active bleeding Low iron and% saturation, continue IV iron supplementation NPO after midnight, bowel prep Angioplasty/stenting of the Right internal and common carotid artery using embolic protection Paroxysmal AFib, rate controlled Armando Vasc score 3 CAD s/p stent placement Elevated proBNP HELD aspirin for now and Xarelto [address] Bowman's recommendations. 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 Velasquez's catheterization Baseline creatinine: 2.4 FENa: 1.3% Creatinine, improving Nephrology recommended LR at 75 cc/hour. Follow up on phosphorus and PTH, repeat UA Continue to monitor BMP and strict I/O chart. Appreciate recs. Actively watch for any fluid overload. Possible hematoma Patient has a very small nodule that is very unlikely to be a hematoma at the site of access of catheterization Therefore a CT abdomen pelvis has been ordered, follow up Proteinuria Follow up with multiple myeloma, STEPHANIE, C3-C4 workup Hypertension Continue home medication amlodipine 5 mg as per home meds Hyperlipidemia Continue rosuvastatin as per home meds Patient has been accepted at [facility], but patient currently not clinically stable for discharge. Code Status: Full code DVT Prophylaxis: SCDs Nutrition: Clear liquid Prognosis: Guarded Disposition: Continue care in PCU, continue to monitor H&H, actively watch for any fluid overload, colonoscopy in a.m. Cr Akbar MD Internal Medicine, PGY 1 Date of Service: November 05, 2024 Billing Provider: JOSE A ECHOLS MD, SIVA, RES November 05, 2024 17:35
--- NOTE | 2024-11-05 18:41 | RADIOLOGY REPORT ---
Indication: Hematoma, suspicion for thrombus Technique: CT axial images of the abdomen and pelvis are obtained with intravenous contrast. Coronal and sagittal reformats were obtained. Radiation Dose Information: CTDI volume is 13.4 mGy. Dose-length product is 642 mGy*cm Comparison: None FINDINGS: Tiny bilateral pleural effusions. Small pericardial effusion. Bibasilar atelectasis/ consolidation. Adrenal glands, spleen, pancreas unremarkable in shape. Liver unremarkable in shape. No CT evidence for cholelithiasis. There is no hydronephrosis / nephrolithiasis. Right renal cysts measuring up to 3.8 cm. Stomach is partially distended. Small bowel loops are normal in caliber. Rectal wall thickening. Presacral edema and stranding. Colonic diverticular disease. Normal appendix . Moderate volume stool within the colon. Small amount of ascites fluid. Abdominal aortic atherosclerotic disease.m dilatation of the infrarenal abdominal aorta to 2.5 cm. Bl adder is decompressed by Velasquez catheter. Air within the nondependent bladder. Mesenteric edema. Soft tissue edema / anasarca. Moderate thoracolumbar degenerative disc disease and facet hypertrophic changes. Moderate degenerate changes right hip. IMPRESSION: 1. Rectal wall thickening with surrounding stranding. Correlate for proctocolitis. 2. Colonic diverticular disease. 3. Soft tissue edema/ anasarca. Mesenteric edema. Small amount of ascites/ pelvic fluid 4. Bladder decompressed by Velasquez catheter. Air within the nondependent bladder, likely iatrogenic. 5. Small bilateral pleural effusions. Bibasilar atelectasis / consolidation. 6. Other findings as described.
[2024-11-05] MEDS: PEG 3350/Na sulf,bicarb,Cl/KCl oral sol 4 liter bottle PO ONE (19:39)
[2024-11-06] VITALS (14 sets, daily range): BP systolic 95–149; BP diastolic 38–69; PULSE 65–82; RESP 14–23; TEMP 97–97.8; O2SAT 95–99
[2024-11-06 06:54] LABS: BASOPHILS # (AUTO) 0.1 X10'3 (0-0.2); BASOPHILS % (AUTO) 1.1 % (0-1); EOSINOPHILS # (AUTO) 0.3 X10'3 (0-0.9); EOSINOPHILS % (AUTO) 4.4 % (0-6); HEMATOCRIT 26.6 % (35.0-45.0); HEMOGLOBIN 8.9 g/dl (12.0-16.0); LYMPHOCYTES % (AUTO) 13.4 % (21-51); MEAN CORPUSCULAR HEMOGLOBIN 29.8 PG (27.0-31.0); MEAN CORPUSCULAR HGB CONC 33.3 g/dL (33.0-36.5); MEAN CORPUSCULAR VOLUME 89.4 FL (78-98); MEAN PLATELET VOLUME 8.9 FL (7.4-10.4); MONOCYTES # (AUTO) 1.4 X10'3 (0-0.9); MONOCYTES % (AUTO) 18.8 % (2-12); NEUTROPHILS # (AUTO) 4.6 X10'3 (1.8-7.7); NEUTROPHILS % (AUTO) 62.3 % (42-75); PLATELET COUNT 247 X10'3 (140-440); RED BLOOD COUNT 2.97 X10'6 (4.20-5.60); WHITE BLOOD COUNT 7.4 X10'3 (4.5-11.0)
[2024-11-06 07:14] LABS: ALANINE AMINOTRANSFERASE 166 U/L (12-78); ALBUMIN 2.1 G/DL (3.4-5.0); ALBUMIN/GLOBULIN RATIO 0.9 (1.1-1.5); ALKALINE PHOSPHATASE 112 IU/L (46-116); ANION GAP 11 (8-16); ASPARTATE AMINO TRANSFERASE 183 U/L (10-37); BILIRUBIN,TOTAL 0.7 MG/DL (0.1-1.0); BLOOD UREA NITROGEN 45 MG/DL (7-18); BUN/CREATININE RATIO 11.2 (10.0-20.0); CALCIUM 7.7 MG/DL (8.5-10.1); CHLORIDE 110 MMOL/L (99-107); CREATININE 4.02 MG/DL (0.40-0.90); GLUCOSE 79 MG/DL (70-104); PHOSPHORUS 3.7 MG/DL (2.3-4.5); SODIUM 146 MMOL/L (135-145); TOTAL PROTEIN 4.5 G/DL (6.4-8.2); eCRCL 8 ML/MIN; eGFR 11 ML/MIN
--- NOTE | 2024-11-06 07:59 | PROGRESS NOTE ---
Progress Note Dictate Providers to CC ~ Progress Note: Nani seems quite comfortable. Creatinine is just about stable with urine output about 50% more since the Velasquez catheter. The resident's notes reported 700 cc retention the day before. On the , spot urine creatinine over serum creatinine was 3 to 1 with 3+ protein but no spot urine protein, so she has some parenchymal disease who is mainly prerenal although she may be having an element of osmolar diuresis from the urea from the blood in the stool. She had mentally clear and hematocrit is higher today than yesterday. Antibiotic Ordered?: No Subjective Subjective No complaints. Objective Vitals Vital Signs Date Time Temp Pulse Resp B/P (MAP) Pulse Ox O2 Delivery O2 Flow Rate FiO2 11/06/24 06:00 97.2 70 16 149/69 (95) 98 Room Air 11/05/24 20:00 0.0 Lab Results: 11/06/24 0543 11/06/24 0543 Problem\Assessment\Plan Additional Plan Continue to observe. No indication for dialysis today. EDGAR CHAN MD November 06, 2024 07:59
--- NOTE | 2024-11-06 09:13 | PROGRESS NOTE- Residence ---
Progress Note - Resident Providers to CC Resident Creating Document: MARIELA BANKS RES CC: EDGAR CHAN MD ~ Antibiotic Timeout Antibiotic Ordered?: No Subjective Patient is seen this morning. No complaints. She said she is feeling tired. CT abdomen/pelvis done yesterday showed no t hematoma. Objective Vital Signs Date Time Temp Pulse Resp B/P (MAP) Pulse Ox O2 Delivery O2 Flow Rate FiO2 11/06/24 06:00 97.2 70 16 149/69 (95) 98 Room Air 11/05/24 20:00 0.0 Result Diagram: 11/06/2443 11/06/24 05 General: Elderly female, AAO x4, appears pale, not in apparent distress Head: Normocephalic with an atraumatic Eyes: Pupils- 3mm, reacting to light, conjunctiva- anicteric Nose and throat: No polyps, septum- normal, no mucosal ulcers Neck: Supple, no lymphadenopathy, no carotid bruit Respiratory: No use of accessory muscles of respiration, Bilateral normal vesiscular breath sounds heard. No wheeze, rhochi or creps Cardiac: S1-S2 heard, rythm regular, systolic murmur in the mitral area Abdomen: non distended, no tenderness, no organomegaly, bowel sounds- heard Right groin ecchymosis present, tenderness present, no visible mass, able to feel a right femoral, and right dorsalis pedis Extremities: no clubbing, nonpitting edema with tenderness present over both ankle no deformities, peripheral pulses- 2+ Skin: warm and dry, no rash, purpura over both forearms Neuro: No focal deficit, gross cranial nerve exam- normal Other Results I agree with this excellent note. We stopped losartan, Cr still coming down, but pt remains quite weak. Assessment Assessment 84-year-old female with history of paroxysmal AFib on Xarelto, s/p right RCA and CCA stenting on Plavix for the past three weeks, CAD status post PCI, CKD-3 transferred to the ER from [facility] fatigue, anemia, melena, And ground level fall. Nephrology is consulted for elevated creatinine Plan Plan TUYET on CKD Urinary retention -baseline creatinine in 2022 was 1.35 and in September 2024 was 2.16 -current creatinine trends 4>.4.3>.4.5>>4.13>>3.5>>3.06>>2.95, urinalysis no casts -creatinine is downtrending likely suspect TUYET/ATN secondary to hypotension, dehydration -renal us- increased echogenecity, -fena-1.3, unreliable as patient is on diuretic -feurea-70, regaining intrinsic TUYET -urine output 2.5 L yesterday, improving, suspect likely secondary to post ATN diuresis PLAN -continue LR at 125 cc/hr, monitor for fluid overload -monitor BMP and strict input output chart -no need for HD today Non-anion gap Metabolic acidosis- resolved -likely secondary to TUYET on CKD Mild hypokalemia- resolved Normocytic anemia Hemoglobin 8 after PRBC transfusion EGD showed esophagitis and gastritis Continue Protonix Iron low, TSAT-Low, ferritin normal, TIBC normal Proteinuria -STEPHANIE negative, C3, C4 normal, myeloma workup pending Thank you for this interesting consult. We will continue to follow the patient along with you Attending attestation to follow Mariela Banks MD IM resident Date of Service: November 06, 2024 Billing Provider: EDGAR CHAN MD, HARIVARSHA, RES November 06, 2024 09:13 EDGAR CHAN MD November 06, 2024 16:56
[2024-11-06] MEDS ORDERED: fentaNYL/PF 50MCG/1 ML 2ML syringe ONE (13:18)
[2024-11-06] MEDS ORDERED: propofol inj 20 ML IV ONE (13:19)
[2024-11-06] MEDS ORDERED: midazolam 1 mg/ML 2ml injection ONE (13:19)
--- NOTE | 2024-11-06 16:47 | RADIOLOGY REPORT ---
EXAM: NM NM GI BLOOD LOSS SCAN History: ACTIVE BLEEDING Comparison Study: NM NM GI BLOOD LOSS SCAN on DOS: 11/03/24 TECHNIQUE: Following the radiopharmaceutical, anterior dynamic images of the abdomen and pelvis wer e acquired during 60 minutes. CONTRAST MEDIA AND RADIOPHARMACEUTICALS: FINDINGS: Images demonstrate no focus of tagged red blood cell uptake characteristic of an active GI bleed. There is physiologic distribution in the blood pool of the abdominal aorta, iliac, femoral arteries, the liver and spleen. Later images show normal accumulation of the right the tracer in the urinary bl adder. There is no definite evidence of any focal radioactive uptake along the visualized regions of the abdomen to suggest active gastrointestinal bleeding. IMPRESSION: 1. No scintigraphic evidence of active GI bleeding during the 60 minute acquisition period.
--- NOTE | 2024-11-06 18:37 | PROGRESS NOTE- Residence ---
Progress Note - Resident Providers to CC Resident Creating Document: NAVARRO HERMAN RES ~ Antibiotic Timeout Antibiotic Ordered?: No Subjective Patient was seen and examined at bedside. She did not report any issues except stating that she has tired and "worn out". H&H has remained stable since yesterday. Undergone colonoscopy today, revealed the following: Two 7-8 mm polyps in the transverse colon, removed/resected Diverticulosis in the sigmoid colon A single (solitary) ulcer in the proximal sigmoid colon, biopsied. The examined portion of the ileum was normal Nonbleeding internal hemorrhoids No bleed seen. Yellow green bile present in the terminal ileum and colon - goes against active overt bleeding Objective Vital Signs Date Time Temp Pulse Resp B/P (MAP) Pulse Ox O2 Delivery O2 Flow Rate FiO2 11/06/24 14:26 73 14 122/63 95 Room Air 11/06/24 13:46 5.0 11/06/24 06:00 97.2 General: Elderly malnourished female HEENT: Pallor present, PERRLA, no icterus, lymphadenopathy, carotid bruit Respiratory system: Bilateral vesicular breath sounds heard, no adventitious breath sounds CVS: S1-S2 heard, grade 3/6 ejection systolic murmur present in the pulmonic and aortic area GI: Soft, nontender, no organomegaly, no guarding/rigidity, bowel sounds present Neuro: No focal neurological deficits present Extremities: No edema cyanosis clubbing/deformities Skin: Warm and dry, petechiae present Result Diagram: 11/06/24 0543 11/06/24 0543 Advance Care Planning Advanced Care plannin - 30 Minutes Assessment Assessment An 84-year-old female was transferred from [place] in view of drop in hemoglobin to 6.5 and having chronic black tarry stools. Patient was admitted for the evaluation and management of upper GI bleed. Plan Plan Upper GI bleed secondary to anticoagulant use Microcytic hypochromic anemia H/H downtrending Repeat EGD showed nonbleeding gastric ulcer, recommended colonoscopy in a.m. appreciate recommendations Recommendations: IV Protonix daily for six weeks, follow up with biopsy results, clear liquids and upgrade as tolerated. Appreciate recommendations Hemoglobin every q. 8 H Consider Blood transfusion if hemoglobin trends down to less than 7 Bleeding scan negative for any active bleeding Low iron and% saturation, continue IV iron supplementation NPO after midnight, bowel prep November 06, 2024: H&H has remained stable since yesterday Undergone colonoscopy today, revealed the following: Two 7-8 mm polyps in the transverse colon, removed/resected Diverticulosis in the sigmoid colon A single (solitary) ulcer in the proximal sigmoid colon, biopsied. The examined portion of the ileum was normal Nonbleeding internal hemorrhoids Repeat bleeding scan today was negative GI recommendations: Avoid aspirin, ibuprofen, naproxen, for two days Resume taking Plavix at your prior dose in three days. Thus, Plavix withheld, resume date November 08, 2024 No bleed seen. Yellow green bile present in the terminal ileum and colon - goes against active overt bleeding Angioplasty/stenting of the Right internal and common carotid artery using embolic protection Paroxysmal AFib, rate controlled Armando Vasc score 3 CAD s/p stent placement Elevated proBNP HELD aspirin for now and Xarelto [address] Bowman's recommendations. 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 Velasquez's catheterization Baseline creatinine: 2.4 FENa: 1.3% Creatinine, improving Nephrology recommended LR at 75 cc/hour. Follow up on phosphorus and PTH, repeat UA Continue to monitor BMP and strict I/O chart. Appreciate recs. Actively watch for any fluid overload. November 06, 2024: Creatinine down trending, evaluated by Nephrology, recommended continue LR at 125 mL/hour Possible hematoma Patient has a very small nodule that is very unlikely to be a hematoma at the site of access of catheterization Therefore a CT abdomen pelvis has been ordered, follow up Proteinuria Follow up with multiple myeloma, STEPHANIE, C3-C4 workup Hypertension Continue home medication amlodipine 5 mg as per home meds Hyperlipidemia Continue rosuvastatin as per home meds Patient has been accepted at [facility], but patient currently not clinically stable for discharge. Code Status: Full code DVT Prophylaxis: SCDs Nutrition: Clear liquid Prognosis: Guarded Navarro Najibi Internal Medicine Resident Date of Service: November 06, 2024 Billing Provider: JOSE A ECHOLS MD,NAVARRO, RES November 06, 2024 18:37
[2024-11-06 19:38] LABS: HEMATOCRIT 27.1 % (35.0-45.0); MEAN CORPUSCULAR HEMOGLOBIN 29.7 PG (27.0-31.0); MEAN CORPUSCULAR HGB CONC 33.2 g/dL (33.0-36.5); MEAN CORPUSCULAR VOLUME 89.6 FL (78-98); MEAN PLATELET VOLUME 8.8 FL (7.4-10.4); PLATELET COUNT 267 X10'3 (140-440); RED BLOOD COUNT 3.03 X10'6 (4.20-5.60); RED CELL DISTRIBUTION WIDTH 16.9 % (11.5-14.5); WHITE BLOOD COUNT 7.7 X10'3 (4.5-11.0)
[2024-11-07 02:00] VITALS: BP 127/52; PULSE 78; RESP 16; TEMP 97.8; O2SAT 97
[2024-11-07 05:34] LABS: HBSAG SCREEN Negative (Negative)
[2024-11-07 06:00] VITALS: BP 136/56; PULSE 75; RESP 15; TEMP 98.1; O2SAT 95
[2024-11-07 07:22] LABS: MAGNESIUM 1.8 MG/DL (1.5-2.4); PHOSPHORUS 3.8 MG/DL (2.3-4.5); POTASSIUM 3.5 MMOL/L (3.5-5.1)
[2024-11-07 08:00] VITALS: RESP 14; O2SAT 96
[2024-11-07 11:00] VITALS: BP 130/56; PULSE 79; RESP 14; TEMP 97.9; O2SAT 96
--- NOTE | 2024-11-07 17:27 | DISCHARGE SUMMARY-Residence ---
Discharge Summary Providers to CC Resident Creating Document: CR NORMAN, RES CC: JOSE A ECHOLS MD ~ Discharge Summary Assessment An 84-year-old female was transferred from [place] in view of drop in hemoglobin to 6.5 and having chronic black tarry stools. Patient was admitted for the evaluation and management of upper GI bleed. 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 Guy (GI ) Dr. Dowd (GI) Dr. Rodriguez (worm raiser) Dr. Ivy (worm raiser) Dr. Bowman (landscape nurseryman) Complications: None Condition on DC: Stable for transfer Discharge Summary: An 84-year-old female with past medical history of CAD status post stent placement, AFib, stenting/angioplasty in the internal carotid artery and common carotid artery presented to the ED as a transfer from [place] in view of drop of hemoglobin to 6.5. Patient had chronic black tarry stools. Patient was transfuse 1 unit of blood at the outside hospital which stabilized her hemoglobin. Patient underwent EGD which did not reveal any active bleeding but gastritis and duodenitis. Patient was held on aspirin, Xarelto and Plavix at this time before the EGD. There was no active bleeding, patient's Xarelto and Plavix were restarted. Patient continued to have black tarry stools with drop in hemoglobin requiring one more unit of transfusion. Therefore Xarelto was held. Patient underwent bleeding scan which came out to be negative. Xarelto and Plavix continue to be given as per cardiology's recommendations. As the patient continued to have drop in hemoglobin , black tarry stools-patient was withheld on Xarelto. Patient underwent repeat EGD later which revealed no active bleeding but similar findings like before. Patient underwent colonoscopy the next day which had polyps that were resected. Therefore as per GI recommendations, patient's Plavix is also had and we will be started tomorrow. Simultaneously patient also had increasing creatinine and BUN requiring nephrology consultation. Patient was hydrated pretty well while watching for fluid overload which improved her creatinine. Patient also had urine retention with three episodes of 600, 700 and, 680 cc of fluid in the bladder requiring straight catheterization and Weeks's catheterization later. Patient initially also had elevated WBC count with no identifiable source of infection, therefore patient was treated with prophylactic antibiotics were for about five days which resolved her WBC count back to normal. As the patient's hemoglobin and vitals have been stable patient was being discharged to a facility. Physical examination at discharge: General: Elderly malnourished female HEENT: Pallor present, PERRLA, no icterus, lymphadenopathy, carotid bruit Respiratory system: Bilateral vesicular breath sounds heard, no adventitious breath sounds CVS: S1-S2 heard, grade 3/6 ejection systolic murmur present in the pulmonic and aortic area GI: Soft, nontender, no organomegaly, no guarding/rigidity, bowel sounds present Neuro: No focal neurological deficits present Extremities: No edema cyanosis clubbing/deformities Skin: Warm and dry, petechiae present Labs at discharge: WBC: 7.7, H/H: 9/27.1, platelet count: 267 Sodium: 146, potassium: 3.5, BUN: 45, creatinine: 4.02 Imaging: Abdominal CT: Diffuse pancreatic fatty infiltration and atrophy No evidence of acute intra-abdominal abnormality Chest x-ray:No acute disease. Echo: Mild concentric hypertrophy. Septal bounce is present. LVEF is 55-60%. RV is normal size and function. RVSP is estimated at [address]: No acute cardiopulmonary disease. Minimal bibasilar atelectasis. Mildly prominent mediastinal nodes, nonspecific but favored reactive. Enlarged thyroid. Consider further evaluation with a nonemergent, outpatient thyroid ultrasound as clinically indicated. Mild cardiomegaly with trace pericardial effusion. Renal ultrasound:There is increased cortical echogenicity of the kidneys. Correlate for medical renal disease.Distended urinary bladder with urinary b ladder volume of 667 cc. Consider weeks catheter placement if patient unable to void. GI bleed scan (11/03/2024): No scintigraphic evidence of active GI bleeding during the 60 minute acquisition period. Abdomen/pelvis CT:Rectal wall thickening with surrounding stranding. Correlate for proctocolitis. Colonic diverticular disease. Soft tissue edema/ anasarca. Mesenteric edema. Small amount of ascites/ pelvic fluid. Bladder decompressed by Weeks catheter. Air within the nondependent bladder, likely iatrogenic. Small bilateral pleural effusions. Bibasilar atelectasis / consolidation. GI bleeding scan (11/06/2024:No scintigraphic evidence of active GI bleeding during the 60 minute acquisition period. Discharge medications and instructions have been sent to the facility in written form and faxed. *Problems/Diagnosis: (1) Atrial fibrillation (2) Carotid artery stenosis (3) Upper GI bleed Status: Acute Total Time Spent on D/C: > 30 Minutes Date of Service: November 07, 2024 Billing Provider: JOSE A ECHOLS MD, SIVA, RES November 07, 2024 17:27
[2024-11-09 08:11] LABS: A/G RATIO 1.1 (0.7-1.7); ALBUMIN 2.3 g/dL (2.9-4.4); ALPHA-1-GLOBULIN 0.4 g/dL (0.0-0.4); ALPHA-2-GLOBULIN 0.6 g/dL (0.4-1.0); BETA GLOBULIN 0.7 g/dL (0.7-1.3); GAMMA GLOBULIN 0.4 g/dL (0.4-1.8); GLOBULIN, TOTAL 2.1 g/dL (2.2-3.9); M-SPIKE Not Observed g/dL (Not Observed); PROTEIN, TOTAL, SERUM 4.4 g/dL (6.0-8.5)
--- NOTE | 2024-11-09 17:21 | PATHOLOGY REPORT ---
[facility] [address] [place] [address] SURGICAL PATHOLOGY REPORT CaseNumber: [id number] Surgeon:Axel Fierro P.A.-C CLINICAL INFORMATION CLINICAL INFORMATION: Acute post hemorrhagic anemia, melena. DIAGNOSIS DIAGNOSIS: STOMACH, ANTRUM; BIOPSY - MILD CHRONIC INFLAMMATION. - NEGATIVE FOR INTESTINAL METAPLASIA. - NEGATIVE FOR H. PYLORI BY IMMUNOPEROXIDASE STUDY. - NEGATIVE FOR DYSPLASIA/NEOPLASIA. MICROSCOPIC DESCRIPTION MICROSCOPIC DESCRIPTION: One H&E stained slide is examined. Present is gastric mucosa which contains some specialized glands suggesting transitional zone. There is a mild chronic inflammatory infiltrate composed predominantly of lymphocytes and plasma cells. There is no significant active inflammation, no intestinal metaplasia by routine light microscopy, and no dysplasia/neoplasia. Immunoperoxidase s tudy for H. pylori does not highlight organisms. GROSS DESCRIPTION GROSS DESCRIPTION: Received in a container of formalin labeled with the patient's name, number, and " antrum BX" is a 0.3 cm piece of oseguera tissue. The specimen is entirely submitted as A1. The time at [facility] the specimen was removed was 1555. The time at which the specimen was placed in formalin was 1600. Electronically signed by: Yuval Addison M.D. 11/09/2024 4:41:00 PM
--- NOTE | 2024-11-09 18:11 | PATHOLOGY REPORT ---
[facility] [address] [place] [address] SURGICAL PATHOLOGY REPORT CaseNumber: [id number] Surgeon:Meek Dowd P.A.-C CLINICAL INFORMATION CLINICAL INFORMATION: Sepsis, GI bleed. DIAGNOSIS DIAGNOSIS: A.COLON, TRANSVERSE; BIOPSY - TUBULAR ADENOMAS. DIAGNOSIS: B.COLON, SIGMOID; BIOPSY - BENIGN ULCER, SUBACUTE, NONSPECIFIC. - NEGATIVE FOR GRANULOMA AND DYSPLASIA/NEOPLASIA. MICROSCOPIC DESCRIPTION A. COLON, TRANSVERSE MICROSCOPIC DESCRIPTION: One slide from part A is examined. Performed. B. COLON, SIGMOID MICROSCOPIC DESCRIPTION: One slide from part B is examined. Present is ulcerated colonic mucosa. Ther e is subacutely inflamed granulation tissue base. The limited viable colonic mucosa present shows nor mal architecture. There is no significant lamina propria plasmacytosis, no crypt abscess, no granulom a, and no dysplasia/neoplasia. GROSS DESCRIPTION A. COLON, TRANSVERSE GROSS DESCRIPTION: Received in a container of formalin labeled with the patient's name, number, and " transverse colon polyp" are 2 pieces of oseguera tissue 0.5 x 0.3 x 0.1 and 0.4 x 0.3 x 0.2 cm. The specim en is entirely submitted as A1. The time at which the specimen was removed was 1330. The time at whic h the specimen was placed in formalin was 1331. B. COLON, SIGMOID GROSS DESCRIPTION: Received in a container of formalin labeled with the patient's name, number, and " sigmoid BX" are 3 pieces of oseguera tissue 0.2-0.3 cm. The specimen is entirely submitted as B1. The time at which the specimen was removed was 1335. The time at which the specimen was placed in formalin wa s 1337. Electronically signed by: Yuval Addison M.D. 11/09/2024 5:32:00 PM
== END 2024-11-07 14:19 | DRG 871 ==
LOC: ER 14:41 → ED HOLD 17:13 → PCU 3S 21:29
PROVIDERS: ADMIT Family Medicine; ATTEND Family Medicine
PROC: 0DB48ZX Excision of Esophagogastric Junction, Via Natural or Artificial Opening Endoscopic, Diagnostic (ICD-10-PCS; 2024-11-02)
PROC: 0DB78ZX Excision of Stomach, Pylorus, Via Natural or Artificial Opening Endoscopic, Diagnostic (ICD-10-PCS; 2024-11-02)
PROC: 0DB68ZX Excision of Stomach, Via Natural or Artificial Opening Endoscopic, Diagnostic (ICD-10-PCS; 2024-11-02)
PROC: 30233N1 Transfusion of Nonautologous Red Blood Cells into Peripheral Vein, Percutaneous Approach (ICD-10-PCS; principal; 2024-11-03)
PROC: CW1 Nuclear Medicine, Anatomical Regions, Planar Nuclear Medicine Imaging (ICD-10-PCS; 2024-11-03)
PROC: 0DB78ZX Excision of Stomach, Pylorus, Via Natural or Artificial Opening Endoscopic, Diagnostic (ICD-10-PCS; 2024-11-05)
PROC: BW211ZZ Computerized Tomography (CT Scan) of Abdomen and Pelvis using Low Osmolar Contrast (ICD-10-PCS; 2024-11-05)
PROC: 0DBL8ZZ Excision of Transverse Colon, Via Natural or Artificial Opening Endoscopic (ICD-10-PCS; 2024-11-06)
PROC: 0DBN8ZX Excision of Sigmoid Colon, Via Natural or Artificial Opening Endoscopic, Diagnostic (ICD-10-PCS; 2024-11-06)
PROC: CW1 Nuclear Medicine, Anatomical Regions, Planar Nuclear Medicine Imaging (ICD-10-PCS; 2024-11-06)
DX: A41.9 Sepsis, unspecified organism (principal); K21.01 Gastro-esophageal reflux disease with esophagitis, with bleeding; K57.31 Diverticulosis of large intestine without perforation or abscess with bleeding; N17.0 Acute kidney failure with tubular necrosis; K25.4 Chronic or unspecified gastric ulcer with hemorrhage; K29.81 Duodenitis with bleeding; N18.4 Chronic kidney disease, stage 4 (severe); E87.20 Acidosis, unspecified; D62 Acute posthemorrhagic anemia; K86.1 Other chronic pancreatitis; I48.0 Paroxysmal atrial fibrillation; K31.89 Other diseases of stomach and duodenum; K63.5 Polyp of colon; I25.10 Atherosclerotic heart disease of native coronary artery without angina pectoris; I12.9 Hypertensive chronic kidney disease with stage 1 through stage 4 chronic kidney disease, or unspecified chronic kidney disease; E87.6 Hypokalemia; K64.8 Other hemorrhoids; I48.91 Unspecified atrial fibrillation; E78.00 Pure hypercholesterolemia, unspecified; T45.515A Adverse effect of anticoagulants, initial encounter; J43.9 Emphysema, unspecified; J45.909 Unspecified asthma, uncomplicated; I25.2 Old myocardial infarction; Y92.89 Other specified places as the place of occurrence of the external cause; I95.9 Hypotension, unspecified
CPT/HCPCS: 36415; 36430; 43239; 45380; 45385; 71045; 71250; 74150; 74176; 76770; 78278; 80053; 80061; 81001; 82570; 82728; 82784; 83036; 83540; 83550; 83605; 83690; 83735; 83880; 83935; 83970; 84100; 84132; 84145; 84155; 84165; 84300; 84443; 84484; 84540; 85007; 85025; 85027; 86038; 86060; 86160; 86334; 86885; 86900; 86901; 86920; 87040; 87081; 87088; 87207; 87340; 88305; 88342; 93005; 93306; 96365; 96368; 97116; 97161; 97530; 97535; 99152; 99285; A4314; A4620; A5200; A9560; C1758; C1889; G0378; J0696; J2250; J2470; J2704; J3010; J3490; J7030; J7040; J7070; J7120; P9016